=== PATIENT | male | born 1960 | race Caucasian/White ===

== ENCOUNTER 2017-01-08 16:52 | Inpatient (IN) | payer MEDICARE, MEDICAID, OTHER ==
[~2017-01-08] VITALS: Ht 165.1 cm; Wt 71.4 kg
[2017-01-08 17:00] VITALS: BP 178/102; PULSE 98; RESP 16; TEMP 98.7; O2SAT 98
[2017-01-08] MEDS ORDERED: LORazepam 2 MG/ML VIAL IV ONE (17:45)
--- NOTE | 2017-01-08 17:45 | PD ---
HPI . suicide ideation Chief Complaint: Psychiatric Symptoms Time Seen by Provider: 17:35 Travel History International Travel<30 days: No Contact w/Intl Traveler<30days: No Traveled to known affect area: No History of Present Illness HPI 56-year-old male brought in by the police secondary suicide threats and ideation. Patient is very agitated and it is very difficult to obtain a history from him. Patient tells me repeatedly that he wants to kill himself as soon as he goes home he will do exactly that. He denies having an actual plan and tells me that I will only find out once he kills himself and I find out about it later on. At this present time he denies any pain or complaints. He tells me to obtain all of his information from his , who is not present. 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) Social History Alcohol Use: Yes Tobacco Use: Yes Substance Use: Yes (ETOH socially; Nicotine 1-1.5PPD; Has a pain pump implanted.) Allergies-Medications (Allergen,Severity, Reaction): Coded Allergies: No Known Allergies (Verified , 01/08/17) Reported Meds & Prescriptions Reported Meds & Active Scripts Active Active Prescriptions or Reported Medications Unobtainable Review of Systems ROS Limitations: Uncooperative, Combative, Poor Historian General / Constitutional: No: Fever Eyes: No: Visual changes HENT: No: Headaches Cardiovascular: No: Chest Pain or Discomfort Respiratory: No: Shortness of Breath Gastrointestinal: No: Abdominal Pain Genitourinary: No: Dysuria Musculoskeletal: No: Pain Skin: No Rash Neurologic: No: Weakness Psychiatric: Positive: Suicidal Ideations, Mood Disorder Endocrine: No: Polydipsia Hematologic/Lymphatic: No: Easy Bruising Physical Exam Narrative Examination is limited due to patient's disruptive and combat his behavior as well as restraints GENERAL: AAO x 3, Well-nourished, well-developed patient. SKIN: Warm and dry. No visible rashes or bruising. small abrasion to right elbow HEAD: Normocephalic and atraumatic. EYES: No scleral icterus. No injection or drainage. ENT: No nasal drainage noted. Airway patent. NECK: Supple, trachea midline. No JVD. CARDIOVASCULAR: Regular rate and rhythm without murmurs, gallops, or rubs. RESPIRATORY: Breath sounds equal bilaterally. No accessory muscle use. No rhonchi or rales. GASTROINTESTINAL: Abdomen soft, non-tender, nondistended. EXTREMITIES: No cyanosis. b/l pitting edema R>L 3+, pain to palpation of right leg, pedal edema + 2 b/l feet, BACK: No obvious deformity. back brace in place NEURO: grossly intact PSYCH: AAO x 3, very agitated, combative,yelling and cursing Data Data Last Documented VS Vital Signs Date Time Temp Pulse Resp B/P Pulse Ox O2 Delivery O2 Flow Rate FiO2 01/08/17 20:15 70 16 139/71 99 01/08/17 17:00 98.7 Orders Complete Blood Count With Diff (01/08/17 17:45) Comprehensive Metabolic Panel (01/08/17 17:45) Iv Access Insert/Monitor (01/08/17 17:45) Psych Screen (01/08/17 17:45) Lorazepam Inj (Ativan Inj) (01/08/17 17:45) Restraints Non-Violent JENN.Q3H (01/08/17 17:45) Drug Screen, Random Urine (01/08/17 17:45) Alcohol (Ethanol) (01/08/17 17:45) Salicylates (Aspirin) (01/08/17 17:45) Tylenol (Acetaminophen) (01/08/17 17:45) Chest, Single Ap (01/08/17 ) Us Leg Venous Doppler Bilat (01/08/17 17:45) Haloperidol Inj (Haldol Inj) (01/08/17 19:15) Midazolam Inj (Versed Inj) (01/08/17 19:15) ^ Straight Catheter (01/08/17 20:17) Ceftriaxone Inj (Rocephin Inj) (01/08/17 22:00) Azithromycin Inj (Zithromax Inj) (01/08/17 22:00) Urinalysis - C+S If Indicated (01/08/17 21:57) Labs Laboratory Tests Test 01/08/17 01/08/17 19:42 20:30 White Blood Count 13.3 TH/MM3 Red Blood Count 3.94 MIL/MM3 Hemoglobin 11.7 GM/DL Hematocrit 34.9 % Mean Corpuscular Volume 88.7 FL Mean Corpuscular Hemoglobin 29.6 PG Mean Corpuscular Hemoglobin 33.4 % Concent Red Cell Distribution Width 13.5 % Platelet Count 132 TH/MM3 Mean Platelet Volume 10.7 FL Neutrophils (%) (Auto) 76.4 % Lymphocytes (%) (Auto) 13.2 % Monocytes (%) (Auto) 9.8 % Eosinophils (%) (Auto) 0.1 % Basophils (%) (Auto) 0.5 % Neutrophils # (Auto) 10.2 TH/MM3 Lymphocytes # (Auto) 1.8 TH/MM3 Monocytes # (Auto) 1.3 TH/MM3 Eosinophils # (Auto) 0.0 TH/MM3 Basophils # (Auto) 0.1 TH/MM3 CBC Comment DIFF FINAL Differential Comment Sodium Level 135 MEQ/L Potassium Level 4.3 MEQ/L Chloride Level 103 MEQ/L Carbon Dioxide Level 24.3 MEQ/L Anion Gap 8 MEQ/L Blood Urea Nitrogen 26 MG/DL Creatinine 2.02 MG/DL Estimat Glomerular Filtration 34 ML/MIN Rate Random Glucose 104 MG/DL Calcium Level 8.8 MG/DL Total Bilirubin 0.4 MG/DL Aspartate Amino Transf 26 U/L (AST/SGOT) Alanine Aminotransferase 31 U/L (ALT/SGPT) Alkaline Phosphatase 68 U/L Total Protein 6.6 GM/DL Albumin 3.4 GM/DL Salicylates Level 7.0 MG/DL Acetaminophen Level LESS THAN 2.0 MCG/ML Ethyl Alcohol Level LESS THAN 3 MG/DL Urine Opiates Screen POS Urine Barbiturates Screen NEG Urine Amphetamines Screen NEG Urine Benzodiazepines Screen NEG Urine Cocaine Screen NEG Urine Cannabinoids Screen NEG MDM Medical Decision Making Medical Screen Exam Complete: Yes Emergency Medical Condition: Yes Medical Record Reviewed: Yes Differential Diagnosis suicide ideation, drug induced mood disorder, CHF,DVT, lymphedema, Narrative Course 56 yr old male here with suicide ideation. Patient is very disruptive and combative. I have completed an exam. I have provided him with some ativan. He will need labs and cxr and venous doppler. He is an unreliable historian and cannot provide any information in his current state. He is awaiting bed placement and that provider will determine his disposition. 1929: I have resumed care of this patient. I am still waiting on previous workup that was ordered. Patient is now sedated after being very combative and disruptive. He was given Haldol. 2146: labs reviewed: Patient has elevated creatinine of 2.02, baseline seems to be 1.7-1.8, CKD. Ultrasound was negative for DVT. Chest x-ray with possible consolidation versus atelectasis. He does have edema bilaterally in his lower extremities R>L. This is possibly related to his kidneys. He also has elevated white count and elevated neutrophil % without clear source of infection. This may be related to a UTI vs. respiratory vs. other source of infection. UA has been ordered, but not yet resulted. He is afebrile. However, Xray reads as possible atelectasis vs. consolidation. As I do not have a clear source of infection, I will go ahead and give a dose of antibiotics here in the ED as this could be related to the findings on CXR. I have provided him with azithromycin and rocephin here in ED. Drug screen unremarkable: his behavior may be related to something such as K2 which is not detectable with urine tox screen. It is also possible he is having a true psychotic episode. Last Impressions Chest X-Ray 01/08/17 0000 Signed Impressions: Service Date/Time: Sunday, January 08, 2017 20:19 - CONCLUSION: Underinflated examination with mild opacity both lung bases. The appearance favors atelectasis over consolidation. However, mild degree of air space consolidation cannot totally be excluded. Zhou Solis MD Laboratory Tests Test 01/08/17 01/08/17 19:42 20:30 White Blood Count 13.3 TH/MM3 Red Blood Count 3.94 MIL/MM3 Hemoglobin 11.7 GM/DL Hematocrit 34.9 % Mean Corpuscular Volume 88.7 FL Mean Corpuscular Hemoglobin 29.6 PG Mean Corpuscular Hemoglobin 33.4 % Concent Red Cell Distribution Width 13.5 % Platelet Count 132 TH/MM3 Mean Platelet Volume 10.7 FL Neutrophils (%) (Auto) 76.4 % Lymphocytes (%) (Auto) 13.2 % Monocytes (%) (Auto) 9.8 % Eosinophils (%) (Auto) 0.1 % Basophils (%) (Auto) 0.5 % Neutrophils # (Auto) 10.2 TH/MM3 Lymphocytes # (Auto) 1.8 TH/MM3 Monocytes # (Auto) 1.3 TH/MM3 Eosinophils # (Auto) 0.0 TH/MM3 Basophils # (Auto) 0.1 TH/MM3 CBC Comment DIFF FINAL Differential Comment Sodium Level 135 MEQ/L Potassium Level 4.3 MEQ/L Chloride Level 103 MEQ/L Carbon Dioxide Level 24.3 MEQ/L Anion Gap 8 MEQ/L Blood Urea Nitrogen 26 MG/DL Creatinine 2.02 MG/DL Estimat Glomerular Filtration 34 ML/MIN Rate Random Glucose 104 MG/DL Calcium Level 8.8 MG/DL Total Bilirubin 0.4 MG/DL Aspartate Amino Transf 26 U/L (AST/SGOT) Alanine Aminotransferase 31 U/L (ALT/SGPT) Alkaline Phosphatase 68 U/L Total Protein 6.6 GM/DL Albumin 3.4 GM/DL Salicylates Level 7.0 MG/DL Acetaminophen Level LESS THAN 2.0 MCG/ML Ethyl Alcohol Level LESS THAN 3 MG/DL Urine Opiates Screen POS Urine Barbiturates Screen NEG Urine Amphetamines Screen NEG Urine Benzodiazepines Screen NEG Urine Cocaine Screen NEG Urine Cannabinoids Screen NEG Case has been discussed with Dr. Street who is in agreement with the above treatment plan. 2204: We discussed the case with Dr. Ortega who recommends psych screen and consult to medicine to f/u the elevated white count and for treatment. Patient has been medically cleared for psych screen. They will determine his disposition. Diagnosis Primary Impression: ANGELIQUE (acute kidney injury) Additional Impressions: Leukocytosis Qualified Code: D72.828 - Other elevated white blood cell (WBC) count Acute psychosis Admitting Information Admitting Physician Requests: Admit Scripts Unable to Obtain Active Prescriptions or Reported Meds Condition: Stable Kaycee Dahl Jan 08, 2017 17:44
[2017-01-08] MEDS ORDERED: HALOPERIDOL LACTATE 5 MG/ML AMP IM ONE (19:15)
[2017-01-08] MEDS ORDERED: MIDAZOLAM HCL 2 MG/2 ML VIAL IM ONE (19:15)
[2017-01-08 20:03] LABS: AUTOMATED NEUTROPHIL # 10.2 TH/MM3 (1.8-7.7); BASOPHIL # 0.1 TH/MM3 (0-0.2); BASOPHIL % 0.5 % (0.0-2.0); EOSINOPHIL % 0.1 % (0.0-4.0); HEMATOCRIT 34.9 % (39.0-51.0); HEMO FLAGS DIFF FINAL; LYMPH % 13.2 % (9.0-44.0); LYMPHOCYTE # 1.8 TH/MM3 (1.0-4.8); MEAN CELL VOLUME 88.7 FL (80.0-100.0); MEAN CORPUSCULAR HEMOGLOBIN 29.6 PG (27.0-34.0); MEAN CORPUSCULAR HGB CONC 33.4 % (32.0-36.0); MONO % 9.8 % (0.0-8.0); NEUT % 76.4 % (16.0-70.0); PLATELET COUNT 132 TH/MM3 (150-450); RED BLOOD COUNT 3.94 MIL/MM3 (4.50-5.90); RED CELL DISTRIBUTION WIDTH 13.5 % (11.6-17.2); WHITE BLOOD COUNT 13.3 TH/MM3 (4.0-11.0)
[2017-01-08 20:15] VITALS: BP 139/71; PULSE 70; RESP 16; O2SAT 99
[2017-01-08 20:18] LABS: ANION GAP 8 MEQ/L (5-15); AST (GOT) 26 U/L (15-37); BICARBONATE 24.3 MEQ/L (21.0-32.0); BLOOD UREA NITROGEN 26 MG/DL (7-18); CHLORIDE 103 MEQ/L (98-107); GLOMERULAR FILTRATION RATE 34 ML/MIN (>89); POTASSIUM 4.3 MEQ/L (3.5-5.1); SODIUM (NA) 135 MEQ/L (136-145)
[2017-01-08 20:20] LABS: ALT (GPT) 31 U/L (12-78)
[2017-01-08 20:21] LABS: ACETAMINOPHEN LESS THAN 2.0 MCG/ML (10.0-30.0); ALKALINE PHOSPHATASE 68 U/L (45-117); TOTAL BILIRUBIN ADULT 0.4 MG/DL (0.2-1.0)
--- NOTE | 2017-01-08 20:33 | RADRPT ---
EXAM DATE/TIME: 01/08/2017 20:19 [facility] COMPARISON: No previous studies available for comparison. INDICATIONS : Cough. MEDICAL HISTORY : None. SURGICAL HISTORY : None. ENCOUNTER: Initial ACUITY: 1 day PAIN SCORE: Non-responsive. LOCATION: Bilateral chest FINDINGS: Portable AP view of the chest demonstrates a normal-sized cardiac silhouette. The lungs are underinfl ated and there is mild airspace opacity both lung bases. No effusion or pneumothorax is visualized. B ones and soft tissues demonstrate no acute finding. Cervical spine hardware is present. CONCLUSION: Underinflated examination with mild opacity both lung bases. The appearance favors atelectasis over c onsolidation. However, mild degree of air space consolidation cannot totally be excluded. Zhou Solis MD on January 08, 2017 at 20:30 Board Certified Radiologist. This report was verified electronically.
[2017-01-08 21:28] LABS: AMPHETAMINE, URINE NEG (NEG); BARBITURATES, URINE NEG (NEG); COCAINE, URINE NEG (NEG)
--- NOTE | 2017-01-08 21:45 | RADRPT ---
EXAM DATE/TIME: 01/08/2017 21:07 [facility] COMPARISON: No previous studies available for comparison. INDICATIONS : Bilateral leg swelling. MEDICAL HISTORY : Hypertension. Suicided attempt. SURGICAL HISTORY : Cervicle spine surgery. Abdominal pain pump. Fistula repair. ENCOUNTER: Initial ACUITY: 1 day PAIN SCORE: Non-responsive LOCATION: Bilateral legs. TECHNIQUE: Venous ultrasound of the left and right leg was performed from the inguinal ligament to the proximal calf. Real-time, color Doppler and spectral tracing, compression and augmentation techniques were us ed. FINDINGS: RIGHT LEG: There is normal compressibility of the deep venous system from the inguinal region to the proximal ca lf. No echogenic clot is seen in the lumen of the common femoral, femoral, popliteal, and posterior tibial veins. There is a normal response of the venous system to proximal and distal augmentation an d respiration. LEFT LEG: There is normal compressibility of the deep venous system from the inguinal region to the proximal ca lf. No echogenic clot is seen in the lumen of the common femoral, femoral, popliteal, and posterior tibial veins. There is a normal response of the venous system to proximal and distal augmentation an d respiration. CONCLUSION: No DVT is identified within either lower extremity. Zhou Solis MD on January 08, 2017 at 21:38 Board Certified Radiologist. This report was verified electronically.
[2017-01-08] MEDS ORDERED: AZITHROMYCIN INJ 500 MG in SODIUM CHLOR 0.9% 250 ML INJ 250 ML IV ONE (22:00)
[2017-01-08] MEDS ORDERED: cefTRIAXone INJ 1,000 MG in SODIUM CHLORIDE 0.9% INJ 100 ML IV ONE (22:00)
[2017-01-08 22:16] LABS: BLOOD, URINE NEG (NEG); COMMENT (UR) CULT NOT INDICATED; CULTURE IF INDICATED CULT NOT INDICATED; GLUCOSE,URINE NEG (NEG); HYALINE CAST, URINE 3 /lpf (RARE); KETONE, URINE NEG (NEG); NITRITE,URINE NEG (NEG); URINE COLOR YELLOW (YELLW/STRAW)
[2017-01-08] MEDS ORDERED: [UNRECOGNIZED DRUG - REMARK] (22:33)
[2017-01-08 23:00] VITALS: BP 124/62; PULSE 66; RESP 16; O2SAT 99
[2017-01-09 01:00] VITALS: BP 156/72; PULSE 54; RESP 16; O2SAT 99
[2017-01-09] MEDS ORDERED: ACETAMINOPHEN 325 MG TAB PO ONE (03:00)
[2017-01-09 06:00] VITALS: BP 125/60; PULSE 68; RESP 20; TEMP 97.1; O2SAT 98
[2017-01-09] MEDS ORDERED: MORP1TAB24 PO (06:04)
[2017-01-09] MEDS ORDERED: LORA-373 PO (06:04)
[2017-01-09] MEDS ORDERED: BACL10TA PO ×2 (06:45→13:23)
[2017-01-09] MEDS ORDERED: BLOOD PRESSURE (06:45)
--- NOTE | 2017-01-09 13:13 | PD ---
History of Present Illness Chief Complaint: Psychiatric Symptoms Time Seen by Provider: 10:45 Travel History International Travel<30 Days: No Contact w/Intl Traveler<30days: No Known affected area: No Legal Status Legal Status: Fu Act Fu Act Signed By: Margo Manrique History of Present Illness: History of Present Illness HPI 56-year-old male with history of anxiety and depression as well as chronic pain who is brought in by the police under a BA secondary to suicide threats and ideation. . The BA reads " Tanmay was contacted at home when he became combative and making threats to hurt himself and others. Patient upon arrival to ED was agitated and uncooperative. ED note reads " Patient tells me repeatedly that he wants to kill himself as soon as he goes home he will do exactly that. He denies having an actual plan and tells me that I will only find out once he kills himself and I find out about it later on." EMR is reviewed. He was admitted to [facility] in 2008 for suicidal ideation and threats . Patient is seen in J pod. he is awake, alert and oriented. Speech is clear and logical. He appears depressed. He denies social ideation to me at this time . He does not acknowledge events leading up to him being placed under a BA. He states " I don't remember why I came here or what I said". Staff have contacted the patient's who reports that she is concerned with his recent behaviors. She expresses her concern his safety if he were to be discharged . It is reported that yesterday while she was at work he is neighbor went to check on him and found him unresponsive. 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 HX: DEPRESSION, ANXIETY History of Inpatient Treatment: No Guns or firearms in home: No Social History x 36 years. Lives with . Patient sustained a back injury in 200 with persistent pain. Hx Alcohol Use: Yes Hx Tobacco Use: Yes Hx Substance Use: No Substance Use Type: Alcohol, Nicotine/Cigarettes Hx of Substance Use Treatment: No Family Psychiatric History Unknown. Allergies-Medications (Allergen,Severity, Reaction): Coded Allergies: No Known Allergies (Verified , 01/08/17) Reported Meds & Prescriptions Reported Meds & Active Scripts Active Reported [Blood Pressure] Baclofen 10 Mg Tab 10 Mg PO Q8HR PRN Lorazepam 0.5 Mg Tab 0.5 Mg PO Q8H PRN Morphine ER (Morphine Sulfate) 15 Mg Tab 15 Mg PO Q8H PRN Review of Systems Musculoskeletal: COMPLAINS OF: Joint pain, Back pain, Neck pain Exam Alert: Yes [place]: Person (ox4) Mood: Depressed Affect: Restricted Speech: Clear, Logical Eye Contact: Normal Memory Intact: Comment (reports does not remember what led to BA ) Hallucinations: Other (negative) Suicidal: Ideation (deneis ant present) Homicidal: Ideation (denies at present) Insight/Judgement poor. poor. MDM Medical Decision Making Medical Record Reviewed: Yes Assessment/Plan 56 year old male with hx of depression and anxiety as well as hx of chronic pain who was placed under a BA after he was found unresponsive in his home. He then became agitated, combative and made threats to hurt himself and others. patient presented in agitated state in ED. At this time it is recommended that he be admitted to [facility] for further observation, to maintain safety as well as to adjust current medications. Will obtain necessary consults as well to manage medical issues. Orders Complete Blood Count With Diff (01/08/17 17:45) Comprehensive Metabolic Panel (01/08/17 17:45) Iv Access Insert/Monitor (01/08/17 17:45) Psych Screen (01/08/17 17:45) Lorazepam Inj (Ativan Inj) (01/08/17 17:45) Restraints Non-Violent JENN.Q3H (01/08/17 17:45) Drug Screen, Random Urine (01/08/17 17:45) Alcohol (Ethanol) (01/08/17 17:45) Salicylates (Aspirin) (01/08/17 17:45) Tylenol (Acetaminophen) (01/08/17 17:45) Chest, Single Ap (01/08/17 ) Us Leg Venous Doppler Bilat (01/08/17 17:45) Haloperidol Inj (Haldol Inj) (01/08/17 19:15) Midazolam Inj (Versed Inj) (01/08/17 19:15) ^ Straight Catheter (01/08/17 20:17) Ceftriaxone Inj (Rocephin Inj) (01/08/17 22:00) Azithromycin Inj (Zithromax Inj) (01/08/17 22:00) Urinalysis - C+S If Indicated (01/08/17 21:57) Acetaminophen (Tylenol) (01/09/17 03:00) Diet Regular Basic (01/09/17 Breakfast) Diet Regular Basic (01/09/17 Lunch) Results Vital Signs Date Time Temp Pulse Resp B/P Pulse Ox O2 Delivery O2 Flow Rate FiO2 01/09/17 06:00 97.1 68 20 125/60 98 Room Air 01/09/17 01:00 54 16 156/72 99 Room Air 01/08/17 23:00 66 16 124/62 99 Room Air 01/08/17 20:15 70 16 139/71 99 01/08/17 17:00 98.7 98 16 178/102 98 Laboratory Tests Test 01/08/17 01/08/17 19:42 20:30 White Blood Count 13.3 Red Blood Count 3.94 Hemoglobin 11.7 Hematocrit 34.9 Mean Corpuscular Volume 88.7 Mean Corpuscular Hemoglobin 29.6 Mean Corpuscular Hemoglobin 33.4 Concent Red Cell Distribution Width 13.5 Platelet Count 132 Mean Platelet Volume 10.7 Neutrophils (%) (Auto) 76.4 Lymphocytes (%) (Auto) 13.2 Monocytes (%) (Auto) 9.8 Eosinophils (%) (Auto) 0.1 Basophils (%) (Auto) 0.5 Neutrophils # (Auto) 10.2 Lymphocytes # (Auto) 1.8 Monocytes # (Auto) 1.3 Eosinophils # (Auto) 0.0 Basophils # (Auto) 0.1 CBC Comment DIFF FINAL Differential Comment Sodium Level 135 Potassium Level 4.3 Chloride Level 103 Carbon Dioxide Level 24.3 Anion Gap 8 Blood Urea Nitrogen 26 Creatinine 2.02 Estimat Glomerular Filtration 34 Rate Random Glucose 104 Calcium Level 8.8 Total Bilirubin 0.4 Aspartate Amino Transf 26 (AST/SGOT) Alanine Aminotransferase 31 (ALT/SGPT) Alkaline Phosphatase 68 Total Protein 6.6 Albumin 3.4 Salicylates Level 7.0 Acetaminophen Level LESS THAN 2.0 Ethyl Alcohol Level LESS THAN 3 Urine Color YELLOW Urine Turbidity CLEAR Urine pH 6.0 Urine Specific [place] 1.008 Urine Protein NEG Urine Glucose (UA) NEG Urine Ketones NEG Urine Occult Blood NEG Urine Nitrite NEG Urine Bilirubin NEG Urine Urobilinogen LESS THAN 2.0 Urine Leukocyte Esterase NEG Urine RBC 1 Urine Hyaline Casts 3 Microscopic Urinalysis Comment CULT NOT INDICATED Urine Opiates Screen POS Urine Barbiturates Screen NEG Urine Amphetamines Screen NEG Urine Benzodiazepines Screen NEG Urine Cocaine Screen NEG Urine Cannabinoids Screen NEG Diagnosis Primary Impression: Adjustment disorder Additional Impressions: ANGELIQUE (acute kidney injury) Acute psychosis Leukocytosis Admitting Information Admitting Physician Requests: Admit Condition: Stable Problem Qualifiers Primary Impression: Adjustment disorder Qualified Code: F43.23 - Adjustment disorder with mixed anxiety and depressed mood Additional Impressions: Leukocytosis Qualified Code: D72.828 - Other elevated white blood cell (WBC) count Enid Vora Jan 09, 2017 13:13
[2017-01-09] MEDS ORDERED: NIFE60TA58 PO (13:23)
[2017-01-09] MEDS ORDERED: LORA-475 PO (13:23)
[2017-01-09] MEDS ORDERED: GABA100C4 PO (13:23)
[2017-01-09] MEDS ORDERED: AMLO5TAB2 PO (13:23)
[2017-01-09] MEDS ORDERED: OMEP20TA PO (13:23)
[2017-01-09] MEDS ORDERED: CYMB60CA PO (13:23)
[2017-01-09] MEDS ORDERED: GABA300C5 PO (13:23)
[2017-01-09] MEDS ORDERED: MORP1TAB26 PO (13:23)
[2017-01-09] MEDS ORDERED: PIND5 PO (13:23)
[2017-01-09] MEDS ORDERED: MAGNESIUM HYDROXIDE SUSP 30 ML CUP PO PRN (13:30)
[2017-01-09] MEDS ORDERED: ALUMINUM/MAGNESIUM/SIMETH 30 ML CUP PO PRN (13:30)
[2017-01-09] MEDS ORDERED: MIDO2.5T PO (13:32)
[2017-01-09 13:41] VITALS: BP 129/67; PULSE 65; RESP 16; O2SAT 100
[2017-01-09 15:08] VITALS: BP 159/70; PULSE 64; RESP 18; TEMP 98.3
[2017-01-09] MEDS: ACETAMINOPHEN 325 MG TAB PO PRN (15:09)
[2017-01-09] MEDS: MORPHINE SULFATE 60 MG CONTROLLED RELEASE TAB PO SCH (16:15)
[2017-01-09 17:34] VITALS: BP 159/70; PULSE 64; RESP 18; TEMP 98.3; O2SAT 95
[2017-01-09] MEDS: PINDOLOL 5 MG TAB PO SCH (20:37)
[2017-01-09] MEDS: DULoxetine HCl DR 60 MG CAP PO SCH (20:37)
[2017-01-09] MEDS: GABAPENTIN 100 MG CAP PO SCH (20:37)
[2017-01-09] MEDS: GABAPENTIN 300 MG CAP PO SCH (20:37)
[2017-01-10] MEDS: MORPHINE SULFATE 60 MG CONTROLLED RELEASE TAB PO SCH ×3 (00:33→16:20)
[2017-01-10] MEDS: LORazepam 2 MG/ML VIAL IV PRN (00:52)
[2017-01-10 05:57] VITALS: BP 171/77; PULSE 81; RESP 17; TEMP 98.1; O2SAT 95
[2017-01-10] MEDS: PINDOLOL 5 MG TAB PO SCH ×2 (08:59→21:40)
[2017-01-10] MEDS: DULoxetine HCl DR 60 MG CAP PO SCH ×2 (08:59→21:40)
[2017-01-10] MEDS: GABAPENTIN 300 MG CAP PO SCH ×2 (08:59→21:40)
[2017-01-10] MEDS: GABAPENTIN 100 MG CAP PO SCH ×2 (08:59→21:40)
[2017-01-10] MEDS ORDERED: PANTOPRAZOLE SOD 20 MG DELAYED RELEASE TAB PO SCH (09:00)
[2017-01-10] MEDS ORDERED: amLODIPine BESYLATE 5 MG TAB PO SCH (09:00)
[2017-01-10 09:19] LABS: ANION GAP 12 MEQ/L (5-15); BICARBONATE 26.2 MEQ/L (21.0-32.0); BLOOD UREA NITROGEN 19 MG/DL (7-18); CHLORIDE 103 MEQ/L (98-107); POTASSIUM 3.9 MEQ/L (3.5-5.1); SODIUM (NA) 141 MEQ/L (136-145)
[2017-01-10 09:21] LABS: GLOMERULAR FILTRATION RATE 46 ML/MIN (>89)
[2017-01-10 09:25] LABS: HDL CHOLESTEROL 60.9 MG/DL (40.0-60.0); LDL CHOLESTEROL 141 MG/DL (0-99)
--- NOTE | 2017-01-10 10:46 | HHI.HP ---
Provisional Diagnosis Admission Date Jan 09, 2017 at 13:26 [place] I. Her with mixed anxiety and depressed mood F 43.23 Certification of Person's Competence To Provide Express and Informed Consent I have personally examined Tanmay Red , a person being served at [facility] on, Jan 10, 2017 10:09. Express and informed consent means consent voluntarily given in writing, by a competent person, after sufficient explanation and disclosure of the subject matter involved to enable the person to make a knowing and willful decision without any element of force, fraud, deceit, duress, or other form of constraint or coercion. This person is 18 years of age or older, is not now known to be incompetent to consent to treatment with a guardian advocate, and does not have a health care surrogate or proxy currently making medical treatment decisions. I have found this person to be one of the following: [] Competent to provide express and informed consent, as defined above, for voluntary admission to this facility and is competent to provide express and informed consent for treatment. He/she has the consistent capacity to make well reasoned, willful, and knowing decisions concerning his or her medical or mental health treatment. The person fully and consistently understands the purpose of the admission for examination/placement and is fully capable of personally exercising all rights assured under [place] Incompetent to provide express and informed consent to voluntary admission, and this is incompetent to provide express and informed consent to treatment. The person must be transferred to involuntary status and a petition for a guardian advocate filed with the Circuit Court. [xx] Refusing to provide express and informed consent to voluntary admission but is competent to provide express and informed consent for treatment. The person must be discharged or transferred to involuntary status. Form shall be completed within 24 hours of a person's arrival at the receiving facility and filed in the clinical record of each person: 1. Admitted on a voluntary basis 2. Permitted to provide express and informed consent to his/her own treatment 3. Allowed to transfer from involuntary to voluntary status 4. Prior to permitting a person to consent to his or her own treatment after having been previously found incompetent to consent to treatment. History of Present Illness Capacity: Lacks Capacity (patient lacks capacity to sign for admission, this have capacity to sign for medication) HPI Patient is a 56-year-old white male comes here under Fu act by the [facility] office dated 01/08/17 at 4:15 PM the document reviewed and agreed with initially stating that he was contacted at home when he became combative making threats to hurt himself and others. Patient seen screened in the ED urine toxicology positive for opiates, alcohol less than 3. EMR reviewed patient has had 1 prior visit here 2008 for depression with overdose seen by Dr. Prabhakar. Patient seen in his room with nurse [place], patient laying in bed showing a behavior indicating that he is in pain he is at times moaning and groaning and twisting around holding his abdomen. There are delays in his response to questions that may be related to his pain level. Patient somewhat reluctantly and irritably does answer questions. He states he does not remember what happened yesterday. However today he denies suicidality homicidality voices or visions. He states he has severe chronic pain from back injury 20+ years ago in [place]. He does have a baclofen pump. And he is on supplemental oral morphine. He states that this is issue. He does state he sees a psychiatrist Dr. Florez through [place] act and is prescribed Cymbalta 60 mg twice a day. He also states she has a pain doctor in the [place] area He states he lives with his . There are no children in the house. He states his relationship with his is good. He denies alcohol or other drugs with this. He does state he has occasional adult beverage. As the session continued patient became more more angry and irritable stating all he wish to do was to go home. I have attempted twice to call patient's Rhoda Red at [phone] have left messages on the answering machine for return my call. I feel it is important to get some confirmatory information concerning this man safety. Thus at the present time we will admit patient we will continue the Fu act I'll do first opinion requests a second opinion. Will continue medications per the EMR be due the hospitalist consulting with us. 10:45 AM talked with patient's on the phone. She confirms the chronicity and severity of the patient's pain. She also states that over the past few days has become more irritable angry making vague suicidal statements saying that she should just leave him. He has had insomnia decreased appetite along with this. She states they have been at attempting to readjust the medications and is pump is now on morphine and baclofen in the pump. She is somewhat fearful for his safety. Thus at the present time we'll continue the Fu act I 'll do first opinion request a second opinion. Patient's will meet with us at about noon tomorrow to discuss further care. I will offer the patient Elavil 25 mg at at bedtime tonight also Review of Systems Constitutional: DENIES: Diaphoretic episodes, Fatigue, Fever, Weight gain, Weight loss, Chills, Dizziness, Change in appetite, Night Sweats Endocrine: DENIES: Heat/cold intolerance, Polydipsia, Polyuria, Polyphagia Eyes: DENIES: Blurred vision, Diplopia, Eye inflammation, Eye pain, Vision loss , Photosensitivity, Double Vision Ears, nose, mouth, throat: DENIES: Tinnitus, Hearing loss, Vertigo, Nasal discharge, Oral lesions, Throat pain, Hoarseness, Ear Pain, Running Nose, Epistaxis, Sinus Pain, Toothache, Odynophagia Respiratory: DENIES: Apneas, Cough, Snoring, Wheezing, Hemoptysis, Sputum production, Shortness of breath Cardiovascular: DENIES: Chest pain, Palpitations, Syncope, Dyspnea on Exertion , PND, Lower Extremity Edema, Orthopnea, Claudication Gastrointestinal: DENIES: Abdominal pain, Black stools, Bloody stools, Constipation, Diarrhea, Nausea, Vomiting, Difficulty Swallowing, Anorexia Genitourinary: DENIES: Sexual dysfunction, Urinary frequency, Urinary incontinence, Urgency, Hematuria, Dysuria, Nocturia, Penile Discharge, Testicular Pain, Testicular Swelling Musculoskeletal: COMPLAINS OF: Back pain (severe has baclofen pump and supplemental morphine orally), Neck pain Integumentary: DENIES: Abnormal pigmentation, Nail changes, Pruritus, Rash Hematologic/lymphatic: DENIES: Bruising, Lymphadenopathy Immunologic/allergic: DENIES: Eczema, Urticaria Neurologic: DENIES: Abnormal gait, Headache, Localized weakness, Paresthesias, Seizures, Speech Problems, Tremor, Poor Balance Psychiatric: COMPLAINS OF: Anxiety, Depression, Agitation Past Psych History Psychological trauma history Patient severe back injury traumatic 20+ years ago with chronic severe back pain Violence risk - others (6 mos) Low Violence risk - self (6 mos) Patient make vague suicidal statements though now denying it Substance Abuse History Drugs/Alcohol past 12 months Denies Past Family Social History Coded Allergies: No Known Allergies (Verified , 01/08/17) Past Medical History Severe chronic back pain Reported Medications Midodrine 2.5 Mg Tab2.5 Mg PO TID #90 TAB Ref 0 01/09/[address] (Jocelynn BERNARD)60 Mg [id number] Mg PO DAILY #30 CAP Ref 0 01/09/17 Gabapentin 300 Mg [id number] Mg PO BID #60 CAP Ref 0 01/09/17 Gabapentin 100 Mg [id number] Mg PO BID #60 CAP Ref 0 01/09/17 Nifedipine ER 24 HR 60 Mg Tab60 Mg PO DAILY #30 TAB Ref 0 01/09/17 Baclofen 10 Mg Tab10 Mg PO QID PRN (MUSCLE SPASM) Ref 0 01/09/17 Morphine ER 60 Mg Tab60 Mg PO Q8H Ref 0 01/09/17 Omeprazole 20 Mg Tab20 Mg PO DAILY #30 TAB Ref 0 01/09/17 Amlodipine 5 Mg Tab5 Mg PO DAILY #30 TAB Ref 0 01/09/17 Pindolol 5 Mg Tab5 Mg PO Q12HR #60 TAB Ref 0 01/09/17 Lorazepam (Ativan)2 Mg Tab2 Mg PO Q8H PRN (ANXIETY AND/OR AGITATION) Ref 0 01/09/17 Discontinued Reported Medications [Blood Pressure] No Conflict Check 01/09/17 Baclofen 10 Mg Tab10 Mg PO Q8HR PRN (MUSCLE SPASM) Ref 0 01/09/17 Lorazepam 0.5 Mg Tab0.5 Mg PO Q8H PRN (ANXIETY) Ref 0 01/09/17 Morphine ER 15 Mg Tab15 Mg PO Q8H PRN (Pain Management) Ref 0 01/09/17 [pt refuses to answer] No Conflict Check 01/08/17 Current Medications Medications (Trade) Dose Ordered Sig/Carmen Route Start Time Stop Time Status Last Admin (Tylenol) 650 mg Q4H PRN PO 01/09/17 13:30 01/09/17 15:09 (Milk Of Magnesia Liq) 30 ml DAILY PRN PO 01/09/17 13:30 (Mag-Al Plus Susp Liq) 30 ml Q6H PRN PO 01/09/17 13:30 (Norvasc) 5 mg DAILY PO 01/10/17 09:00 01/10/17 08:59 (Cymbalta Dr) 60 mg BID PO 01/09/17 21:00 01/10/17 08:59 (Neurontin) 100 mg BID PO 01/09/17 21:00 01/10/17 08:59 (Neurontin) 300 mg BID PO 01/09/17 21:00 01/10/17 08:59 (Visken) 5 mg Q12HR PO 01/09/17 21:00 01/10/17 08:59 (Protonix) 20 mg DAILY PO 01/10/17 09:00 01/10/17 09:00 (Oramorph Sr) 60 mg Q8H PO 01/09/17 16:00 01/10/17 08:59 Family History Patient unwilling to discuss family history Social History Patient lives with pet dog Patient's Strengths (min. 2) Patient verbal they will accept self care Physical Exam Patient seen screened in ED exam reviewed and agreed with patient angry irritable quite demonstrative with his pain twisting in bed moaning and groaning Vital Signs Vital Signs Date Time Temp Pulse Resp B/P Pulse Ox O2 Delivery O2 Flow Rate FiO2 01/10/17 05:57 98.1 81 17 171/77 95 01/09/17 13:41 Room Air Lab Results Urine toxicology positive for opiates Mental Status Examination Alert oriented white male appears stated age laying in the bed and obviously in pain. Patient moving all 4 extremities angry and irritable Appearance In bed in obvious pain Speech: Hesitant, Slow Orientation: x3 Memory: Unremarkable Thought Process: Linear Thought Content: Unremarkable Language fair Fund of Knowledge Fair Hallucination Type: None Attention and Concentration: Other (fair) Suicidal Ideation: No (patient denies at this time) Previous Suicide Attempts: Yes (patient hospitalized here in 2008) Homicidal Ideation: No Previous Homicide Attempts: No Insight: Poor Judgment: Poor Affect: Other (marked increase range and intensity) Mood: Angry, Irritable Motor Activity: Abnormal gait-specify (patient in bed complaining of severe back pain) Assessment & Plan Problem List: (1) Adjustment disorder ICD Code: F43.20 Assessment & Plan Estimated LOS: 1-3 days distant patient meets criteria for further assessment under the Fu act. We will meet with patient's tomorrow at about noon. And offer patient a level 25 mg at bedtime We'll continue medications per the EMR review of hospitalist consulting with us Discharge Planning To be determined Request HC Surrog/Guard Advoc?: No Problem Qualifiers (1) Adjustment disorder: Qualified Code: F43.23 - Adjustment disorder with mixed anxiety and depressed mood Zhou Glover MD Jan 10, 2017 10:46
[2017-01-10] MEDS ORDERED: ACETAMINOPHEN 325 MG TAB PO PRN (11:00)
[2017-01-10] MEDS ORDERED: MAGNESIUM HYDROXIDE SUSP 30 ML CUP PO PRN (11:00)
[2017-01-10] MEDS ORDERED: ALUMINUM/MAGNESIUM/SIMETH 30 ML CUP PO PRN (11:00)
--- NOTE | 2017-01-10 14:37 | PD.CONS ---
HPI Service [facility] ([place], [place])ists Consult Requested By Psychiatry team Reason for Consult Patient with history of chronic pain. On pain pump and multiple pain medication. Primary Care Physician Unknown Diagnoses: History of Present Illness Written by Ish Doyle, acting as scribe for Dr. Gonzalez on 01/10/17 at 14: 14. Patient is a 56-year-old male with primary medical history of hypertension, depression, chronic back pain with pain pump infusion who came into the hospital brought in by the police for suicidal threats ideation. He is now admitted to inpatient psychiatry unit further evaluation. Consulted for medical management. Patient seen and examined today. Tearful saying he is in a lot of pain. Pain is described as constant, located at the back. States that he got severe chronic back pain secondary to back injury 20+ years ago in [place]. States that he has pain pump and has been followed by pain management doctor [facility]. States that pain pump is being changed every 2 months but he is unsure of the, he has an appointment Sunday to see his pain doctor. Patient states that pain pump is a combination of morphine and baclofen. Patient states that they're supposed to change it to Dilaudid and baclofen but he isn't sure if it has been changed or not. Verified other medical conditions. Patient states that he is able to walk and ambulate. Denies SOB/ dyspnea. Denies chest pain, palpitations, headaches, dizziness. Denies fevers, chills, n/v/d. Denies hematuria, dysuria. As per Dr. Glover, who spoke with his states that pain pump is hydromorphone and baclofen. Review of Systems Except as stated in HPI: all other systems reviewed are Neg Past Family Social History Allergies: Coded Allergies: No Known Allergies (Verified , 01/08/17) Past Medical History Chronic back pain Hypertension Depression Past Surgical History Surgery Pain pump placement Reported Medications Reported Meds & Active Scripts Active Reported Midodrine 2.5 Mg Tab 2.5 Mg PO TID Cymbalta (Duloxetine HCl) 60 Mg Capdr 120 Mg PO DAILY Gabapentin 300 Mg Cap 300 Mg PO BID Gabapentin 100 Mg Cap 100 Mg PO BID Nifedipine ER 24 HR (Nifedipine) 60 Mg Tab 60 Mg PO DAILY Baclofen 10 Mg Tab 10 Mg PO QID PRN Morphine ER (Morphine Sulfate) 60 Mg Tab 60 Mg PO Q8H Omeprazole 20 Mg Tab 20 Mg PO DAILY Amlodipine (Amlodipine Besylate) 5 Mg Tab 5 Mg PO DAILY Pindolol 5 Mg Tab 5 Mg PO Q12HR Ativan (Lorazepam) 2 Mg Tab 2 Mg PO Q8H PRN Active Ordered Medications Current Medications Medications (Trade) Dose Ordered Sig/Carmen Route Start Time Stop Time Status Last Admin (Tylenol) 650 mg Q4H PRN PO 01/09/17 13:30 01/09/17 15:09 (Milk Of Magnesia Liq) 30 ml DAILY PRN PO 01/09/17 13:30 (Mag-Al Plus Susp Liq) 30 ml Q6H PRN PO 01/09/17 13:30 (Norvasc) 5 mg DAILY PO 01/10/17 09:00 01/10/17 08:59 (Cymbalta Dr) 60 mg BID PO 01/09/17 21:00 01/10/17 08:59 (Neurontin) 100 mg BID PO 01/09/17 21:00 01/10/17 08:59 (Neurontin) 300 mg BID PO 01/09/17 21:00 01/10/17 08:59 (Visken) 5 mg Q12HR PO 01/09/17 21:00 01/10/17 08:59 (Protonix) 20 mg DAILY PO 01/10/17 09:00 01/10/17 09:00 (Oramorph Sr) 60 mg Q8H PO 01/09/17 16:00 01/10/17 08:59 (Elavil) 25 mg HS PO 01/10/17 21:00 (Habitrol 21 Mg Patch.24 Hr) 1 patch DAILY T-DERMAL 01/11/17 09:00 Miscellaneous Information 1 HS T-DERMAL 01/11/17 21:00 Family History Denies any family medical history Social History Denies alcohol use Tobacco use three quarters of a pack per day, since 12 years old Denies illicit drug use Physical Exam Vital Signs Vital Signs Date Time Temp Pulse Resp B/P Pulse Ox O2 Delivery O2 Flow Rate FiO2 01/10/17 05:57 98.1 81 17 171/77 95 01/09/17 17:34 98.3 64 18 159/70 95 01/09/17 15:08 98.3 64 18 159/70 Physical Exam GENERAL: This is a well-nourished, well-developed patient, no acute distress. SKIN: Mid back portion with scar from prior surgery. Warm and dry. HEAD: Atraumatic. Normocephalic. No temporal or scalp tenderness. EYES: Pupils equal round and reactive. Extraocular motions intact. No scleral icterus. No injection or drainage. ENT: Nose without bleeding. Airway patent. NECK: Trachea midline. No JVD or lymphadenopathy. Supple, nontender, no meningeal signs. CARDIOVASCULAR: Regular rate and rhythm without murmurs, gallops, or rubs. RESPIRATORY: Clear to auscultation. Breath sounds equal bilaterally. No wheezes , rales, or rhonchi. GASTROINTESTINAL: Abdomen soft, non-tender, nondistended. Bowel sounds active 4. Right quadrant with pain pump. Left quadrant with scar from previous pain pump insertion site MUSCULOSKELETAL: Extremities without clubbing, cyanosis, or edema. No joint tenderness, effusion, or edema noted. No calf tenderness. Negative Homans sign bilaterally. NEUROLOGICAL: Awake and alert. Grimacing every time he gets to be moved. Unable perform leg elevations due to being in pain. Speech is guarded, does not want to provide information. Laboratory Laboratory Tests Test 01/10/17 07:52 Sodium Level 141 Potassium Level 3.9 Chloride Level 103 Carbon Dioxide Level 26.2 Anion Gap 12 Blood Urea Nitrogen 19 Creatinine 1.57 Estimat Glomerular Filtration 46 Rate Random Glucose 73 Calcium Level 8.9 Triglycerides Level 123 Cholesterol Level 226 LDL Cholesterol 141 HDL Cholesterol 60.9 Cholesterol/HDL Ratio 3.71 Result Diagram: 01/08/17 1942 01/10/17 0752 Assessment and Plan Problem List: (1) Adjustment disorder ICD Code: F43.20 Status: Acute (2) Chronic back pain ICD Code: M54.9 Status: Acute (3) Chronic pain ICD Code: G89.29 Status: Chronic Assessment and Plan Patient is a 56-year-old male with primary medical history of hypertension, depression, chronic back pain with pain pump infusion who came into the hospital brought in by the police for suicidal threats ideation. He is now admitted to inpatient psychiatry unit further evaluation. Consulted for medical management. Depression, adjustment disorder - Managed by psychiatry team Acute on Chronic back pain - Pain pump with hydromorphone/baclofen - Continue with pain medication morphine 60 mg every 8 hours - Continue with gabapentin - Severe pain, unable to move around the bed, but states he is able to ambulate and he has ambulated the day room. Patient's pain syndrome have some addiction and depression component as his injuries have been about 20+ years ago. He is on high dose of pain medication with history of overdose. - Will not change pain regimen - Continue with changes in psychiatric medications - PT to treat and evaluate Leukocytosis - Negative UA - Chest x-ray showed underinflated examination with mild opacity in both lung bases. Periods favors atelectasis over consolidation. However, mild degree of air space consolidation cannot totally be excluded. - Nebulizer treatments, incentive spirometer use. Counseled with smoking cessation. - Trend CBC Acute on chronic kidney disease - Patient probably has chronic kidney disease, creatinine 2008 showed 1.90--> 1.83 - Encourage by mouth fluid intake - Avoid nephrotoxins - Trend BMP Tobacco abuse/ dependence - Smoking cessation - Nicotine patch HTN, accelerated - Pindolol 5 mg every 12 - Will add clonidine when necessary - Monitor BP trend HLD - Will discuss with patient statin use and ASCVD risk. - Heart Healthy diet DVT prop ambulatory - if decrease ambulation will start lovenox This note was transcribed by loulou [Ish Doyle]. I, Dr. Ernesto Gonzalez personally performed the history, physical exam, and medical decision making; and confirmed the accuracy of the information in the transcribed note. Authenticated by Dr. Ernesto Gonzalez on 01/10/17 at 1420. Thank you for this consultation. We will follow patient with you. Code Status Full code Discussed Condition With Patient, nursing, Dr. Glover Problem Qualifiers (1) Adjustment disorder: Qualified Code: F43.23 - Adjustment disorder with mixed anxiety and depressed mood Ish Tee Jan 10, 2017 14:37 Ernesto Gonzalez MD Jan 10, 2017 23:48
[2017-01-10] MEDS ORDERED: cloNIDine HCL 0.1 MG TAB PO PRN (14:45)
[2017-01-10 16:27] VITALS: BP 194/86; PULSE 80; RESP 18; TEMP 98.3; O2SAT 98
[2017-01-10] MEDS ORDERED: RESP: ALBUTEROL 2.5 MG/IPRATROPIUM 0.5 MG NEB (PRN) NEB (16:45)
[2017-01-10 16:55] LABS: HEMOGLOBIN A1a 0.9 %; HEMOGLOBIN A1b 1.9 %; HEMOGLOBIN Ao 85.9 %; HEMOGLOBIN LA1C 1.8 %; HEMOGLOBIN P3 3.7 %
[2017-01-10] MEDS ORDERED: RESP: ALBUTEROL 2.5 MG/IPRATROPIUM 0.5 MG NEB (SCH) NEB (20:00)
[2017-01-10] MEDS ORDERED: AMITRIPTYLINE HCL 25 MG TAB PO SCH (21:00)
[2017-01-10] MEDS: ACETAMINOPHEN 325 MG TAB PO PRN (21:44)
[2017-01-11 00:10] VITALS: O2SAT 98
[2017-01-11 00:11] VITALS: O2SAT 97
[2017-01-11] MEDS ORDERED: NALOXONE HCL 0.4 MG/ML AMP ONE (00:23)
[2017-01-11] MEDS ORDERED: LORazepam 2 MG/ML VIAL IV PUSH PRN ×4 (00:45)
[2017-01-11] MEDS ORDERED: LORazepam 2 MG TAB PO PRN (00:45)
[2017-01-11] MEDS ORDERED: SODIUM CHLORIDE 0.9% FLUSH 10 ML FLUSH IV FLUSH SCH (00:45)
[2017-01-11] MEDS ORDERED: FLUMAZENIL 0.5 MG/5 ML VIAL IV PUSH PRN (00:45)
[2017-01-11] MEDS ORDERED: cloNIDine HCL 0.1 MG TAB PO PRN (00:45)
[2017-01-11] MEDS ORDERED: SODIUM CHLORIDE 0.9% FLUSH 10 ML FLUSH IV FLUSH PRN (00:45)
[2017-01-11] MEDS ORDERED: NALOXONE HCL 0.4 MG/ML AMP IV ONE (00:45)
[2017-01-11] MEDS ORDERED: LORazepam 1 MG TAB PO PRN (00:45)
[2017-01-11] MEDS: LORazepam 2 MG/ML VIAL IV PRN (00:52)
--- NOTE | 2017-01-11 00:58 | HHI.PR ---
Addendum to Inpatient Note Addendum Reason: Additional Documentation Additional Information S: EliceoT called. Resident team heard overhead page. Arrived to find Erik nurse at bedside, who was able to place IV. Per patient's nurse, patient was unresponsive. Patient has a history of implanted pain pump for back pain. Last dose of morphine was at 4 PM. Upon further chart review, it was found that patient drinks 3 bottles a day of alcohol and has been in the emergency department for the last 2 days without any alcohol. Patient was initially responsive only to pain, but then suddenly woke up complaining of back pain. Patient seemed agitated at that time. O: Vitals: Blood pressure 180s over 80s, pulse 80, pulse ox 97%, temperature 99.1F , respiratory rate of 12 Gen.: Unresponsive male, lying in bed breathing slowly. Then patient woke up suddenly without intervention. HEENT: Pupils 3 mm, equal round and reactive to light, mildly dry mucous membranes Cardiovascular: Regular rate and rhythm Respiratory: Deep, slow breathing with a respiratory rate of 12 Abdomen: Soft, nontender, nondistended Extremities: Warm and well-perfused Neuro/psych: Patient initially only opened his eyes to sternal rub. After patient woke up suddenly, seemed agitated, was alert and oriented to person, patient was in the hospital but thought he was in [place], patient did not know the date but knew it is 2016. Patient seemed agitated after waking up, standing up, walking around, complaining of back pain, sitting down, lying down , getting back up. A/P: Patient is a 56-year-old man with a history of alcohol use of 3 bottles per day who was in the emergency department for the past 2 days without alcohol who presents unresponsive. Erik was called. Patient most likely unresponsive because of post ictal state after alcohol withdrawal seizure. Concern for delirium tremens. Fingerstick blood glucose in the 140s Patient woke up prior to receiving Narcan IV Ativan per [facility] protocol Transfer to intensive care Nurse instructed to call [facility] doctor front desk manager to facilitate transfer. Prolactin, BMP, lactic acid, CBC, troponin, ABG canceled because patient woke up Rally pack Consider IV fluid hydration Seizure precautions Neuro checks Addendum: Within minutes of leaving patient who was walking and talking when we left, another EliceoT was called on the same patient and resident team heard on overhead page. Dr. Ortega at bedside. Per nurse report, patient was on his side, seizing in bed with limbs contracted and foaming at the mouth. Dr. Ortega agrees with Ativan and transfer to intensive care Yash Galvan MD R1 Jan 11, 2017 00:58
[2017-01-11 01:18] LABS: AUTOMATED NEUTROPHIL # 11.8 TH/MM3 (1.8-7.7); BASOPHIL # 0.1 TH/MM3 (0-0.2); BASOPHIL % 0.5 % (0.0-2.0); HEMATOCRIT 40.2 % (39.0-51.0); HEMO FLAGS DIFF FINAL; LYMPH % 18.7 % (9.0-44.0); MEAN CELL VOLUME 92.9 FL (80.0-100.0); MEAN CORPUSCULAR HEMOGLOBIN 29.8 PG (27.0-34.0); MEAN CORPUSCULAR HGB CONC 32.1 % (32.0-36.0); MONO % 7.9 % (0.0-8.0); NEUT % 72.9 % (16.0-70.0); PLATELET COUNT 175 TH/MM3 (150-450); RED BLOOD COUNT 4.32 MIL/MM3 (4.50-5.90); RED CELL DISTRIBUTION WIDTH 13.9 % (11.6-17.2); WHITE BLOOD COUNT 16.3 TH/MM3 (4.0-11.0)
[2017-01-11 01:33] LABS: ANION GAP 27 MEQ/L (5-15); BICARBONATE 13.1 MEQ/L (21.0-32.0); BLOOD UREA NITROGEN 20 MG/DL (7-18); CHLORIDE 99 MEQ/L (98-107); GLOMERULAR FILTRATION RATE 30 ML/MIN (>89); POTASSIUM 4.1 MEQ/L (3.5-5.1); SODIUM (NA) 139 MEQ/L (136-145)
[2017-01-11 03:13] LABS: LACTIC ACID GHOST NOT REPORTABLE
[2017-01-11 06:03] LABS: AUTOMATED NEUTROPHIL # 10.2 TH/MM3 (1.8-7.7); BASOPHIL % 0.1 % (0.0-2.0); HEMATOCRIT 34.7 % (39.0-51.0); HEMO FLAGS DIFF FINAL; LYMPHOCYTE # 1.7 TH/MM3 (1.0-4.8); MEAN CORPUSCULAR HEMOGLOBIN 29.5 PG (27.0-34.0); MEAN CORPUSCULAR HGB CONC 33.9 % (32.0-36.0); MONO % 8.1 % (0.0-8.0); NEUT % 78.8 % (16.0-70.0); PLATELET COUNT 141 TH/MM3 (150-450); RED BLOOD COUNT 3.99 MIL/MM3 (4.50-5.90); RED CELL DISTRIBUTION WIDTH 13.2 % (11.6-17.2)
[2017-01-11 06:27] LABS: BICARBONATE 24.6 MEQ/L (21.0-32.0); POTASSIUM 3.7 MEQ/L (3.5-5.1)
[2017-01-11] MEDS ORDERED: MULTIVITAMINS/MINERALS THERAPEUTIC TAB PO SCH (09:00)
[2017-01-11] MEDS ORDERED: NICOTINE 21 MG/24 HR PATCH T-DERMAL SCH (09:00)
[2017-01-11] MEDS ORDERED: FOLIC ACID 1 MG TAB PO SCH (09:00)
[2017-01-11] MEDS ORDERED: THIAMINE HCL 100 MG TAB PO SCH (09:00)
--- NOTE | 2017-01-11 10:11 | HHI.PR ---
Addendum to Inpatient Note Addendum Reason: Additional Documentation Additional Information Patient was seen yesterday in consultation in the psychiatric unit. He has a history of hypertension, depression, chronic back pain. He has a pain pump in place. His reports the pain pump has Dilaudid and baclofen. He was initially admitted to the psychiatric unit for suicidal ideation. Overnight, the patient reportedly had a seizure. He was combative and was transferred to the ICU. More history obtained from the patient's Rhoda Red. He does not drink alcohol. On reviewing his medical record with her. Apparently he had a seizure a month ago and was taken to another hospital where he was told it was medication related. I reviewed his medications with his . He has Ativan at home written for 2 mg every 8 hours as needed for anxiety. However his reports that he takes it scheduled. Apparently since he arrived at the psychiatric unit 2 days ago, he has not received any Ativan since it is supposed to be on as-needed basis. The patient is seen in the ICU this morning. He is awake, alert, and oriented. He ate breakfast. He reports that he is always shaky. He denied using any alcohol or other illicit drugs except for what is prescribed to him prior to coming to the hospital. Plan: - This is his second seizure for the past 2 months. It is possibly related to benzodiazepine withdrawal. However I believe he would benefit from a Neurologist evaluation to ensure there is no other pathology. - I will schedule Ativan, at a lower dose to avoid oversedation 1m PO TID. Keep PRN Ativan available for seizures. - Appreciate Neurology and psychiatry input. I discussed with Dr. Trujillo who is concerned about medication abuse. Patient is on a lot of medications from his pain management physician. I did discuss with his that ideally he should be weaned off some of these medications. Ernesto Gonzalez MD Jan 11, 2017 10:11
[2017-01-11] MEDS ORDERED: NS + KCL 20 MEQ INJ 1,000 ML IV SCH (10:15)
[2017-01-11] MEDS ORDERED: LORazepam 1 MG TAB PO SCH (14:00)
[2017-01-11] MEDS ORDERED: REMOVE OLD NICODERM (NICOTINE) PATCH T-DERMAL SCH (21:00)
[2017-01-12] MEDS ORDERED: LEVE500 PO (13:28)
== END 2017-01-11 01:10 | disposition short-term general hospital (02) | DRG 882 ==
LOC: NEDAMB 16:52 → NEDA 01-09 13:26 → H260 01-09 14:10
PROVIDERS: ADMIT Psychiatry & Neurology Psychiatry; ATTEND Psychiatry & Neurology Psychiatry
DX: F43.23 Adjustment disorder with mixed anxiety and depressed mood (principal); N17.9 Acute kidney failure, unspecified; R45.851 Suicidal ideations; G40.89 Other seizures; Z78.1 Physical restraint status; F13.230 Sedative, hypnotic or anxiolytic dependence with withdrawal, uncomplicated; F10.230 Alcohol dependence with withdrawal, uncomplicated; F17.210 Nicotine dependence, cigarettes, uncomplicated; F41.9 Anxiety disorder, unspecified; F32.9 Major depressive disorder, single episode, unspecified; M54.9 Dorsalgia, unspecified; D72.829 Elevated white blood cell count, unspecified; G89.29 Other chronic pain; Z96.89 Presence of other specified functional implants; N18.9 Chronic kidney disease, unspecified; I12.9 Hypertensive chronic kidney disease with stage 1 through stage 4 chronic kidney disease, or unspecified chronic kidney disease; E78.5 Hyperlipidemia, unspecified; Z91.5 Personal history of self-harm
CPT/HCPCS: 71010; 80048; 80053; 80061; 80307; 81001; 83036; 83605; 84146; 84484; 85025; 93970; 94150; 94664; 96365; 96372; 96375; J0456; J0696; J2060; J2310; J7050

== ENCOUNTER 2017-01-11 01:15 | Inpatient (IN) | payer MEDICARE, MEDICAID ==
[2017-01-11] VITALS (13 sets, daily range): BP systolic 120–154; BP diastolic 58–76; PULSE 72–95; RESP 12–19; TEMP 98.9; O2SAT 92–100
[~2017-01-11 01:15] MED LIST: AMLO5TAB2 PO; BACL10TA PO; CYMB60CA PO; GABA100C4 PO; GABA300C5 PO; LORA-475 PO; MIDO2.5T PO; MORP1TAB26 PO; NIFE60TA58 PO; OMEP20TA PO; PIND5 PO
[2017-01-11] MEDS ORDERED: CHLORHEXIDINE GLUCONATE 2 % 1 PACK (2 CLOTHS)(extra cloths) TOPICAL PRN (01:45)
[2017-01-11] MEDS ORDERED: LORazepam 1 MG TAB PO PRN (01:45)
[2017-01-11] MEDS ORDERED: LORazepam 2 MG TAB PO PRN (01:45)
[2017-01-11] MEDS ORDERED: SODIUM CHLORIDE 0.9% FLUSH 10 ML FLUSH IV FLUSH PRN ×2 (01:45)
[2017-01-11] MEDS ORDERED: CHLORHEXIDINE GLUCONATE 2 % 1 PACK (2 CLOTHS) TOP PRN (01:45)
[2017-01-11] MEDS ORDERED: FLUMAZENIL 0.5 MG/5 ML VIAL IV PUSH PRN (01:45)
[2017-01-11] MEDS ORDERED: MISCELLANEOUS NURSING INFORMATION XX SCH (01:45)
[2017-01-11] MEDS ORDERED: LORazepam 2 MG/ML VIAL IV PUSH PRN ×6 (01:45)
[2017-01-11] MEDS ORDERED: CHLORHEXIDINE GLUCONATE 2 % 1 PACK (2 CLOTHS) TOP SCH (04:00)
[2017-01-11] MEDS: CHLORHEXIDINE GLUCONATE 2 % 1 PACK (2 CLOTHS)(taper/protocol) TOPICAL SCH (04:00)
--- NOTE | 2017-01-11 05:27 | HHI.HP ---
HPI Service [facility] Primary Care Physician Unknown Admission Diagnosis Diagnoses: Travel History International Travel<30 Days: No Contact w/Intl Traveler <30 Da: No Traveled to Known Affected Are: No History of Present Illness Rapid response was called and this patient last night. Initially respiratory response was called because patient was found by his nurse in his room kneeling and was having tremors. He then had an episode of seizures which was witnessed. This is the reason why they called rapid response. Per report, and rapid response team has ordered for abdomen IV or IM as treatment for alcohol withdrawal. Patient's nurse and also called me to update on the patient and S2 were talking , patient was actually having seizures in his room. At this time, patient was actually was actually sleeping on his side. Last noted the patient was going into generalized tonic-clonic seizures, which are living and forming from his mouth. Therefore I had advised to call have rapid response second time. Upon my arrival, patient is quite lethargic. He just received Ativan 2 mg IV prior. Unable to obtain any further history from patient. Review of Systems not able to obtain ROS Past Family Social History Past Medical History unable to obtain Past Surgical History unable to obtain per EMR, baclfen pump fistula repair Allergies: Coded Allergies: No Known Allergies (Verified , 01/08/17) Family History unable to obtain Social History per EMR and nursing staff pt is a chronic drinker Physical Exam Vital Signs Vital Signs Date Time Temp Pulse Resp B/P Pulse Ox O2 Delivery O2 Flow Rate FiO2 01/11/17 04:00 87 01/11/17 04:00 87 14 120/59 100 01/11/17 03:00 88 14 120/58 97 01/11/17 02:00 95 01/11/17 02:00 95 14 135/58 92 Physical Exam GENERAL: This is a well-nourished, well-developed patient, sedated, post ictal, non communicative SKIN: No rashes, ecchymoses or lesions. Cool and dry. HEAD: Atraumatic. Normocephalic. No temporal or scalp tenderness. EYES: No scleral icterus. No injection or drainage. ENT: Nose without bleeding, purulent drainage or septal hematoma. Airway patent. NECK: Trachea midline. No JVD CARDIOVASCULAR: Regular rate and rhythm without murmurs, gallops, or rubs. RESPIRATORY: Clear to auscultation. Breath sounds equal bilaterally. No wheezes , rales, or rhonchi. GASTROINTESTINAL: Abdomen soft, non-tender, nondistended. No guarding. MUSCULOSKELETAL: Extremities without clubbing, cyanosis, or edema. No calf asymmetry NEUROLOGICAL: post ictal, sedated, not responding to sternal rub. On re exam in ICU pt was much more awake, alert, moving Laboratory Laboratory Tests Test 01/11/17 01:30 Nasal Screen MRSA (PCR) MRSA NOT DETECTED Assessment and Plan Assessment and Plan Impression: alcohol withdrawal seizures suicidal ideation Plan: CIWA protocol pt did get quite sedated with ativan 2mg iv thus will continue for now only if sedation is not adequate, will consider precedex drip labs in am reviewed pts med list on emr - somewhat contradicting as pt is on midodrine and antihypertensives both thus written nursing order to verify meds again with DVT prophylaxis with SCD GI prophyalxis on pantoprazole Discussed Condition With patient, halicat team and nursing staff Physician Certification 2 Midnight Certification Type: Admission for Inpatient Services Order for Inpatient Services The services are ordered in accordance with Medicare regulations or non- Medicare payer requirements, as applicable. In the case of services not specified as inpatient-only, they are appropriately provided as inpatient services in accordance with the 2-midnight benchmark. Estimated LOS (days): 2 days is the estimated time the patient will need to remain in the hospital, assuming treatment plan goals are met and no additional complications. Post-Hospital Plan: Home Murray Ortega MD Jan 11, 2017 05:27
[2017-01-11] MEDS ORDERED: SODIUM CHLORIDE 0.9% FLUSH 10 ML FLUSH IV FLUSH SCH (09:00)
[2017-01-11] MEDS: PANTOPRAZOLE SOD 20 MG DELAYED RELEASE TAB PO SCH (10:16)
[2017-01-11] MEDS: SODIUM CHLORIDE 0.9% FLUSH 10 ML FLUSH IV FLUSH SCH ×2 (10:16→20:07)
[2017-01-11] MEDS: NIFEdipine 60 MG SUSTAINED RELEASE TAB PO SCH (10:16)
[2017-01-11] MEDS: NS + KCL 20 MEQ INJ 1,000 ML IV SCH ×2 (12:18→20:07)
[2017-01-11] MEDS: LORazepam 1 MG TAB PO SCH ×2 (13:54→21:41)
--- NOTE | 2017-01-11 14:02 | HHI.PYPN ---
Subjective Remarks Patient was seen today for psychiatric reevaluation in the ICU, patient is found calm, cooperative in good spirits, he denies depressive symptoms, he denies anhedonia, hopelessness, helplessness, problems with appetite, weight level of concentration he denies suicidal and homicidal ideation, he denies visual and auditory hallucinations, patient is oriented 3, without fluctuation of consciousness, attention deficit gross cognitive impairment present. Patient says that he doesn't remember the reason he is in the hospital, he says that he passed out "maybe due to the medications and taking, maybe by pain"he denies the use of alcohol, he denies the use of illicit drugs, he denies that he is abusing his benzodiazepines and opiates, he says that he takes his Ativan as prescribed, initially 2 mg 3 times a day. However, patient admits that once he was hospitalized in psychiatry his Ativan dose was significantly decreased, which might led to withdrawal and seizures. Review of Systems Other No somatic complaints at this moment Objective Alert: Yes [place]: Person, Place, Date, Situation Mood: Calm Affect: Appropriate Memory Intact: Immediate, Recent, Remote Hallucinations: Other (no perceptual disturbances) Delusions: No Delusion Type: Other (none elicited) Suicidal: Ideation (no SI) Homicidal: Ideation (no HI) Insight/Judgment Fair Labs Test 01/11/17 01:30 Nasal Screen MRSA (PCR) MRSA NOT DETECTED Vitals/IOs Vital Signs Date Time Temp Pulse Resp B/P Pulse Ox O2 Delivery O2 Flow Rate FiO2 01/11/17 10:00 93 01/11/17 06:00 18 140/69 100 Assessment & Plan Problem List: (1) Adjustment disorder Assessment & Plan: Patient does not present any evidence of subjective or objective symptomatology of depression, anxiety, tien or psychosis at this moment. He denies suicidal and homicidal ideation, he denies visual and auditory hallucinations. Patient is oriented 3. Patient is future oriented, he seems to have protective factor for suicidality. Recent overdoses to be related with substance abuse. He does not meet criteria for psychiatric admission. Extensive support, psycho education and motivation provided. Patient was advised to discussed with his psychiatrist the convenience of switching his medication for anxiety. He verbalized agreement and understanding with the plan. Fu act can be lifted. ICD Code: F43.20 Assessment & Plan Estimated LOS: days Justification for Cont. Inpt. Patient does not meet criteria for psychiatric admission at this moment. Problem Qualifiers (1) Adjustment disorder: Qualified Code: F43.21 - Adjustment disorder with depressed mood Rich Trujillo MD Jan 11, 2017 14:02
--- NOTE | 2017-01-11 14:27 | HHI.PR ---
Subjective Remarks Delayed entry. Patient seen at 10 AM. Note was filed under the wrong visit number. Patient was seen yesterday in consultation in the psychiatric unit. He has a history of hypertension, depression, chronic back pain. He has a pain pump in place. His reports the pain pump has Dilaudid and baclofen. He was initially admitted to the psychiatric unit for suicidal ideation. Overnight, the patient reportedly had a seizure. He was combative and was transferred to the ICU. More history obtained from the patient's Rhoda Red. He does not drink alcohol. On reviewing his medical record with her. Apparently he had a seizure a month ago and was taken to another hospital where he was told it was medication related. I reviewed his medications with his . He has Ativan at home written for 2 mg every 8 hours as needed for anxiety. However his reports that he takes it scheduled. Apparently since he arrived at the psychiatric unit 2 days ago, he has not received any Ativan since it is supposed to be on as-needed basis. The patient is seen in the ICU this morning. He is awake, alert, and oriented. He ate breakfast. He reports that he is always shaky. He denied using any alcohol or other illicit drugs except for what is prescribed to him prior to coming to the hospital. Plan: - This is his second seizure for the past 2 months. It is possibly related to benzodiazepine withdrawal. However I believe he would benefit from a Neurologist evaluation to ensure there is no other pathology. - I will schedule Ativan, at a lower dose to avoid oversedation 1m PO TID. Keep PRN Ativan available for seizures. - Appreciate Neurology and psychiatry input. I discussed with Dr. Trujillo who is concerned about medication abuse. Patient is on a lot of medications from his pain management physician. I did discuss with his that ideally he should be weaned off some of these medications. Objective Vitals Vital Signs Date Time Temp Pulse Resp B/P Pulse Ox O2 Delivery O2 Flow Rate FiO2 01/11/17 10:00 93 01/11/17 08:00 72 01/11/17 06:00 93 01/11/17 06:00 93 18 140/69 100 01/11/17 05:00 84 13 128/61 99 01/11/17 04:00 87 01/11/17 04:00 87 14 120/59 100 01/11/17 03:00 88 14 120/58 97 01/11/17 02:00 95 01/11/17 02:00 95 14 135/58 92 I/O 01/10/17 01/10/17 01/10/17 01/11/17 01/11/17 01/11/17 07:00 15:00 23:00 07:00 15:00 23:00 Intake Total 263 ml Output Total 400 ml 300 ml Balance -400 ml -37 ml Intake Oral 100 ml IV Total 163 ml Output Urine Total 400 ml 300 ml # Bowel Movements 1 Ernesto Gonzalez MD Jan 11, 2017 14:27
--- NOTE | 2017-01-11 17:36 | MB ---
cc: SHO DENSON DATE OF CONSULTATION: 01/11/2017 REASON FOR CONSULTATION: Seizure. HISTORY OF PRESENT ILLNESS Mr. Red is a 56 year old man who is admitted to the psychiatry romero under Fu act after he was making suicidal threats and ideation. He has a history of depression. His states that he is acting very violently and belligerently as well. He has a history of two seizures about a month ago evaluation [place] with normal CT of the brain and EEG. There were grand mal seizures according to his where he lost consciousness and generalized tonic activity. He had a recurrent generalized seizure this morning on the psychiatry romero and was then therefore transferred to intensive medical care unit for further evaluation. Apparently he takes Ativan daily but has been off the medicine for two days. The other seizures he had however, he was not withdrawing from any medication. Denies significant alcohol use. PAST HISTORY 1. History of chronic back pain. 2. History of cervical spine surgery 3. History of reflex sympathetic dystrophy in the left leg after an injury, he has a pain pump in place. SOCIAL HISTORY Denies drug use. Denies alcohol use. He does smoke. MEDICATIONS Current medications; 1. Ativan 1 mg p.o. q.8 h. 2. Procardia XL 60 mg daily. 3. Protonix 20 mg daily. 4. Ativan IV as needed for seizure. NEUROLOGIC EXAMINATION His blood pressure is 154/76, pulse is 85, respirations 19, temperature he has been afebrile. Higher cortical functions at this time are normal. He is alert, oriented x3. Normal recall follows commands. Cranial nerves intact. Motor exam normal strength and tone of all groups. There is no drift. Reflexes are symmetric. LABORATORY DATA The white count 13,000, hemoglobin 11.8, hematocrit 34.7%, platelets 141,000. Sodium 137, potassium 3.7, chloride 102, CO2 is 24.6. The BUN is 19, creatinine 1.5, GFR is 48, glucose 71, tox screen positive for opiates. IMPRESSION Generalized tonic-clonic seizure which was recurrent possibly contributed to by Ativan withdraw, however, he states when he had his seizures one month ago there was no withdraw from benzodiazepines. He denies alcohol abuse. RECOMMENDATIONS Would recommend starting Keppra 500 mg b.i.d. he is not able to have a MRI due to his pain pump, however we will obtain a repeat CT of the brain as well as a electroencephalogram, placed him under seizure precautions, he should not drive for until six months being seizure free. MD CANELO Church/chavo /5:07 PM /5:25 PM
--- NOTE | 2017-01-11 20:03 | RADRPT ---
EXAM DATE/TIME: 01/11/2017 19:35 [facility] COMPARISON: No previous studies available for comparison. INDICATIONS : Seizures. RADIATION DOSE: 49.64 CTDIvol (mGy) MEDICAL HISTORY : Hypertension. SURGICAL HISTORY : None. ENCOUNTER: Initial ACUITY: 1 day PAIN SCALE: 0/10 LOCATION: cranial TECHNIQUE: Multiple contiguous axial images were obtained of the head. Using automated exposure control and adj ustment of the mA and/or kV according to patient size, radiation dose was kept as low as reasonably a chievable to obtain optimal diagnostic quality images. DICOM format image data is available electro nically for review and comparison. FINDINGS: CEREBRUM: The ventricles are normal for age. No evidence of midline shift, mass lesion, hemorrhage or acute in farction. No extra-axial fluid collections are seen. POSTERIOR FOSSA: The cerebellum and brainstem are intact. The 4th ventricle is midline. The cerebellopontine angle i s unremarkable. EXTRACRANIAL: The visualized portion of the orbits is intact. The right mastoid air cells are hypoplastic. SKULL: The calvaria is intact. No evidence of skull fracture. CONCLUSION: Unremarkable noncontrast CT. Yash Jeffrey MD on January 11, 2017 at 20:00 Board Certified Radiologist. This report was verified electronically.
[2017-01-11] MEDS: levETIRAcetam 500 MG TAB PO SCH (20:07)
[2017-01-12] VITALS (8 sets, daily range): BP systolic 147–182; BP diastolic 72–93; PULSE 69–97; RESP 11–21; TEMP 98.2–99; O2SAT 94–95
[2017-01-12] MEDS: CHLORHEXIDINE GLUCONATE 2 % 1 PACK (2 CLOTHS)(taper/protocol) TOPICAL SCH (04:00)
[2017-01-12] MEDS: LORazepam 1 MG TAB PO SCH ×2 (05:08→14:36)
[2017-01-12 05:58] LABS: AUTOMATED NEUTROPHIL # 6.2 TH/MM3 (1.8-7.7); BASOPHIL % 0.4 % (0.0-2.0); EOSINOPHIL % 0.1 % (0.0-4.0); HEMATOCRIT 34.7 % (39.0-51.0); HEMO FLAGS DIFF FINAL; LYMPH % 27.1 % (9.0-44.0); LYMPHOCYTE # 2.8 TH/MM3 (1.0-4.8); MEAN CELL VOLUME 87.9 FL (80.0-100.0); MEAN CORPUSCULAR HEMOGLOBIN 30.1 PG (27.0-34.0); MEAN CORPUSCULAR HGB CONC 34.3 % (32.0-36.0); MONO % 11.7 % (0.0-8.0); NEUT % 60.7 % (16.0-70.0); PLATELET COUNT 130 TH/MM3 (150-450); RED BLOOD COUNT 3.95 MIL/MM3 (4.50-5.90); RED CELL DISTRIBUTION WIDTH 13.4 % (11.6-17.2); WHITE BLOOD COUNT 10.3 TH/MM3 (4.0-11.0)
[2017-01-12 06:21] LABS: ALT (GPT) 38 U/L (12-78); ANION GAP 8 MEQ/L (5-15); AST (GOT) 42 U/L (15-37); BICARBONATE 27.3 MEQ/L (21.0-32.0); BLOOD UREA NITROGEN 14 MG/DL (7-18); CHLORIDE 106 MEQ/L (98-107); GLOMERULAR FILTRATION RATE 52 ML/MIN (>89); MAGNESIUM 1.8 MG/DL (1.5-2.5); POTASSIUM 3.3 MEQ/L (3.5-5.1); SODIUM (NA) 141 MEQ/L (136-145)
[2017-01-12 06:22] LABS: ALKALINE PHOSPHATASE 61 U/L (45-117); TOTAL BILIRUBIN ADULT 0.6 MG/DL (0.2-1.0)
[2017-01-12] MEDS: levETIRAcetam 500 MG TAB PO SCH (07:39)
[2017-01-12] MEDS: NIFEdipine 60 MG SUSTAINED RELEASE TAB PO SCH (07:39)
[2017-01-12] MEDS: PANTOPRAZOLE SOD 20 MG DELAYED RELEASE TAB PO SCH (07:39)
[2017-01-12] MEDS: SODIUM CHLORIDE 0.9% FLUSH 10 ML FLUSH IV FLUSH SCH (07:40)
--- NOTE | 2017-01-12 08:02 | HHI.PR ---
Review/Management Diagnosis Recurrent sz---possibly related to benzodiazepine withdrawal, but prior seizure X 2 was not associated with withdrawal. Therefore, recommend continuing keppra. Ok from neuro standpoint to transfer to psychiatry when ok with medicine service Diagnosis/Plan: Subjective Subjective Comments No acute events reported No sz, tolerating keppra well Active Medications Current Medications Medications (Trade) Dose Ordered Sig/Carmen Route Start Time Stop Time Status Last Admin Miscellaneous Information Patient in critical care unit? Ass... [id number] .XX 01/11/17 01:45 01/11/17 01:45 (Chlorhexidine 2% Cloth) 3 pack DAILY@04 TOPICAL 01/11/17 04:00 01/15/17 04:01 01/12/17 04:00 (Chlorhexidine 2% Cloth) 3 pack UNSCH PRN TOPICAL 01/11/17 01:45 01/16/17 01:40 (NS Flush) 2 ml UNSCH PRN IV FLUSH 01/11/17 01:45 (NS Flush) 2 ml BID IV FLUSH 01/11/17 09:00 01/12/17 07:40 (Ativan Inj) 1 mg Q15M PRN IV PUSH 01/11/17 01:45 (Ativan Inj) 1 mg Q2H PRN IV PUSH 01/11/17 01:45 (Romazicon Inj) 0.2 mg Q1M PRN IV PUSH 01/11/17 01:45 (Ativan) 1 mg Q4H PRN PO 01/11/17 01:45 (Ativan Inj) 1 mg Q4H PRN IV PUSH 01/11/17 01:45 01/11/17 03:43 (Ativan) 2 mg Q2H PRN PO 01/11/17 01:45 (Ativan Inj) 2 mg Q2H PRN IV PUSH 01/11/17 01:45 (Ativan Inj) 2 mg Q1H PRN IV PUSH 01/11/17 01:45 01/11/17 01:58 (Ativan Inj) 2 mg Q15M PRN IV PUSH 01/11/17 01:45 (Procardia Xl) 60 mg DAILY PO 01/11/17 09:00 01/12/17 07:39 Pantoprazole Sodium 20 mg 20 mg DAILY PO 01/11/17 09:00 01/12/17 07:39 (NS + KCl 20 Meq Inj) 1,000 ml @ 100 mls/hr Q10H IV 01/11/17 10:45 01/11/17 20:07 (Ativan) 1 mg Q8HR PO 01/11/17 14:00 01/12/17 05:08 (Keppra) 500 mg Q12HR PO 01/11/17 21:00 01/12/17 07:39 Allergies Allergies Coded Allergies No Known Allergies (Verified01/08/17) Exam I&O / VS 01/11/17 01/11/17 01/12/17 15:00 23:00 07:00 Intake Total 263 ml 1005 ml 680 ml Output Total 300 ml 900 ml 600 ml Balance -37 ml 105 ml 80 ml Intake Oral 100 ml 240 ml 480 ml IV Total 163 ml 765 ml 200 ml Output Urine Total 300 ml 900 ml 600 ml # Bowel Movements 1 1 Vital Signs Date Time Temp Pulse Resp B/P Pulse Ox O2 Delivery O2 Flow Rate FiO2 01/12/17 06:00 69 01/12/17 05:00 73 01/12/17 04:00 81 01/12/17 04:00 98.5 81 11 158/77 94 01/12/17 02:00 97 01/12/17 00:00 98.9 77 16 147/72 94 01/12/17 00:00 77 01/11/17 22:00 76 01/11/17 20:00 77 01/11/17 20:00 98.9 77 18 144/69 93 01/11/17 18:00 94 01/11/17 16:00 85 01/11/17 16:00 85 19 154/76 95 01/11/17 14:00 90 01/11/17 12:00 84 12 143/66 99 01/11/17 12:00 84 01/11/17 10:00 93 01/11/17 08:00 72 Exam Comments alert, follow commands Cn intact Motor--denies focal weakness Objective Radiology Results CT brain--normal EEG---pending Micro and Labs Laboratory Tests Test 01/12/17 04:47 White Blood Count 10.3 Red Blood Count 3.95 Hemoglobin 11.9 Hematocrit 34.7 Mean Corpuscular Volume 87.9 Mean Corpuscular Hemoglobin 30.1 Mean Corpuscular Hemoglobin 34.3 Concent Red Cell Distribution Width 13.4 Platelet Count 130 Mean Platelet Volume 10.9 Neutrophils (%) (Auto) 60.7 Lymphocytes (%) (Auto) 27.1 Monocytes (%) (Auto) 11.7 Eosinophils (%) (Auto) 0.1 Basophils (%) (Auto) 0.4 Neutrophils # (Auto) 6.2 Lymphocytes # (Auto) 2.8 Monocytes # (Auto) 1.2 Eosinophils # (Auto) 0.0 Basophils # (Auto) 0.0 CBC Comment DIFF FINAL Differential Comment Sodium Level 141 Potassium Level 3.3 Chloride Level 106 Carbon Dioxide Level 27.3 Anion Gap 8 Blood Urea Nitrogen 14 Creatinine 1.40 Estimat Glomerular Filtration 52 Rate Random Glucose 75 Calcium Level 8.8 Magnesium Level 1.8 Total Bilirubin 0.6 Aspartate Amino Transf 42 (AST/SGOT) Alanine Aminotransferase 38 (ALT/SGPT) Alkaline Phosphatase 61 Total Protein 6.4 Albumin 3.2 Gopal Carreno PhD Jan 12, 2017 08:01
[2017-01-12] MEDS ORDERED: SENNOSIDES 8.6 MG TAB PO PRN (08:15)
--- NOTE | 2017-01-12 08:21 | HHI.PR ---
Subjective Remarks Follow-up seizure. No recurrence tolerating Keppra. No headache. Chronic back pain. Advised to decrease or discontinue benzos and narcotics. Discussed with RN Objective Vitals Vital Signs Date Time Temp Pulse Resp B/P Pulse Ox O2 Delivery O2 Flow Rate FiO2 01/12/17 06:00 69 01/12/17 05:00 73 01/12/17 04:00 81 01/12/17 04:00 98.5 81 11 158/77 94 01/12/17 02:00 97 01/12/17 00:00 98.9 77 16 147/72 94 01/12/17 00:00 77 01/11/17 22:00 76 01/11/17 20:00 77 01/11/17 20:00 98.9 77 18 144/69 93 01/11/17 18:00 94 01/11/17 16:00 85 01/11/17 16:00 85 19 154/76 95 01/11/17 14:00 90 01/11/17 12:00 84 12 143/66 99 01/11/17 12:00 84 01/11/17 10:00 93 I/O 01/11/17 01/11/17 01/11/17 01/12/17 01/12/17 01/12/17 07:00 15:00 23:00 07:00 15:00 23:00 Intake Total 263 ml 1005 ml 680 ml Output Total 400 ml 300 ml 900 ml 600 ml Balance -400 ml -37 ml 105 ml 80 ml Intake Oral 100 ml 240 ml 480 ml IV Total 163 ml 765 ml 200 ml Output Urine Total 400 ml 300 ml 900 ml 600 ml # Bowel Movements 1 1 Result Diagram: 01/12/17 0447 01/12/17 0447 Imaging Last Impressions Head CT 01/11/17 0000 Signed Impressions: Service Date/Time: December 19:35 - CONCLUSION: Unremarkable noncontrast CT. Yash Jeffrey MD Objective Remarks GENERAL: Well-developed, well-nourished in no distress SKIN: Warm and dry. HEAD: Atraumatic. Normocephalic. EYES: Pupils equal and round. No scleral icterus. No injection or drainage. ENT: No nasal bleeding or discharge. Mucous membranes pink and moist. NECK: Trachea midline. No JVD. CARDIOVASCULAR: Regular rate and rhythm. RESPIRATORY: No accessory muscle use. Clear to auscultation. Breath sounds equal bilaterally. GASTROINTESTINAL: Abdomen soft, non-tender, nondistended. MUSCULOSKELETAL: Extremities without clubbing, cyanosis, or edema. No obvious deformities. NEUROLOGICAL: Awake and alert. No obvious cranial nerve deficits. Motor grossly within normal limits. Five out of 5 muscle strength in the arms and legs. Normal speech. PSYCHIATRIC: Appropriate mood and affect; insight and judgment normal. Procedures None A/P Problem List: (1) Adjustment disorder ICD Code: F43.20 Status: Acute (2) Seizure ICD Code: R56.9 Status: Acute Assessment and Plan Seizure contributed by benzo withdrawal. Head CT without acute findings. Continue Keppra and seizure precautions. Follow-up EEG. Adjustment disorder. Fu act lifted by psychiatry. Restart home medication of Cymbalta and Neurontin Hypertension. Suboptimal control restart pindolol continue nifedipine. Discontinue Norvasc as patient already on another calcium channel herb Chronic kidney disease stage III likely related to hypertension with hypokalemia. Urinalysis unremarkable. Avoid nephrotoxins and replace potassium with 30 in Meq by mouth potassium 1. Repeat BMP and magnesium in the morning Mild AST elevation which is chronic. Outpatient follow-up Med rec completed DVT prophylaxis with SCD and early ambulation. Heparin subcutaneous Discharge Planning Discharge patient to home. Significantly improved earlier than expected Condition on discharge: Improved Regular Diet as tolerated Ad Madeleine activity. No driving, climbing heights, carrying young children and swimming alone Rx written: Ernesto Follow-up with primary care physician in one week I spent 35 minutes [id number] with the patient or on the romero discussing the patient's disposition, prognosis, and plan of care with patient's caregivers. Over half the time spent was devoted to counseling the patient regarding placement in coordinating care with caregivers and case management. Problem Qualifiers (1) Adjustment disorder: Qualified Code: F43.21 - Adjustment disorder with depressed mood Marco Antonio Parkinson MD Jan 12, 2017 08:21
[2017-01-12] MEDS ORDERED: PINDOLOL 5 MG TAB PO SCH (09:00)
[2017-01-12] MEDS ORDERED: ONDANSETRON HCL 4 MG/2 ML VIAL IV PRN (09:00)
[2017-01-12] MEDS ORDERED: RESP: ALBUTEROL 2.5 MG/3 ML NEB (PRN) NEB (09:00)
[2017-01-12] MEDS ORDERED: DULoxetine HCl DR 60 MG CAP PO SCH (09:00)
[2017-01-12] MEDS ORDERED: GABAPENTIN 100 MG CAP PO SCH (09:00)
[2017-01-12] MEDS ORDERED: CALCIUM CARBONATE 500 MG CHEWABLE TAB CHEW PRN (09:00)
[2017-01-12] MEDS ORDERED: GABAPENTIN 300 MG CAP PO SCH (09:00)
[2017-01-12] MEDS ORDERED: ACETAMINOPHEN 325 MG TAB PO PRN (09:00)
[2017-01-12] MEDS ORDERED: POTASSIUM CHLORIDE 10 MEQ CONTROLLED RELEASE TAB PO ONE (09:00)
[2017-01-12] MEDS ORDERED: ENALAPRILAT 1.25 MG/ML VIAL IV PRN (09:00)
[2017-01-12] MEDS ORDERED: HEPARIN SODIUM - SQ 10,000 UNITS/ML VIAL SQ SCH (09:00)
[2017-01-12] MEDS ORDERED: MORPHINE SULFATE 60 MG CONTROLLED RELEASE TAB PO SCH (09:00)
[2017-01-12] MEDS ORDERED: hydrALAZINE HCL 20 MG/ML VIAL IV PRN (09:00)
[2017-01-12] MEDS ORDERED: cloNIDine HCL 0.1 MG TAB PO PRN (09:00)
[2017-01-12] MEDS ORDERED: DOCUSATE SODIUM 50 MG/SENNA 8.6 MG TAB PO SCH (09:00)
[2017-01-12] MEDS ORDERED: LACTULOSE SYRUP 20 GM/30 ML CUP PO PRN (09:00)
[2017-01-12 11:45] LABS: CKMB 4.1 NG/ML (0.5-3.6)
[2017-01-12] MEDS ORDERED: LEVE500 PO (13:28)
--- NOTE | 2017-01-12 13:28 | HHI.DCPOC ---
Discharge Care Plan Diagnosis: (1) Seizure Your Health Problems Are: Difficulty with ADL Exercise Tolerance Goals to Promote Your Health * To prevent worsening of your condition and complications * To maintain your health at the optimal level Directions to Meet Your Goals Take your medications as prescribed Follow your dietary instruction Follow activity as directed Keep your appointments as scheduled Take your immunizations and boosters as scheduled If your symptoms worsen call your PCP, if no PCP go to Urgent Care Center or Emergency Room Smoking is Dangerous to Your Health. Avoid second hand smoke Call the 24-hour hour crisis hotline for domestic abuse at Marco Antonio Parkinson MD Jan 12, 2017 13:28
--- NOTE | 2017-01-13 10:38 | MG ---
cc: NABILA MCMAHAN MD Lab No:[id number] Date: 01/12/2017 Age: Sex: M Race: DATE OF : 1960 HISTORY OF PRESENT ILLNESS: A 56 year-old with psychiatric disorder. Posterior rhythm demonstrates 8-9 Hz alpha activity 20-40 microvolts low amplitude in the frontal channels good anterior-posterior gradient. Generalized slowing with transition into drowsy state followed by what appear to be stage I sleep with the appearance of vertex waves. Good EEG variability reactivity. Occasional tiny sharp transients, sleepiness. Reasonable driving with photic stimulation. Single EKG showing sinus rhythm. INTERPRETATION Normal awake sleep EEG. Clinical correlation. Nabila Mcmahan MD MG/ /10:11 AM /10:38 AM
== END 2017-01-12 15:50 | disposition home or self-care (01) | DRG 101 ==
LOC: HIMW 01:15
PROVIDERS: ADMIT Internal Medicine; ATTEND Internal Medicine
DX: G40.409 Other generalized epilepsy and epileptic syndromes, not intractable, without status epilepticus (principal); R45.851 Suicidal ideations; N18.3 Chronic kidney disease, stage 3 (moderate); F13.230 Sedative, hypnotic or anxiolytic dependence with withdrawal, uncomplicated; I12.9 Hypertensive chronic kidney disease with stage 1 through stage 4 chronic kidney disease, or unspecified chronic kidney disease; F17.210 Nicotine dependence, cigarettes, uncomplicated; G89.29 Other chronic pain; M54.9 Dorsalgia, unspecified; E87.6 Hypokalemia; F41.9 Anxiety disorder, unspecified; F43.21 Adjustment disorder with depressed mood
CPT/HCPCS: 70450; 80053; 82550; 82552; 83735; 85025; 87641; 95819; J1644; J2060; J3480

== ENCOUNTER 2017-08-01 17:24 | Inpatient (IN) | payer MEDICAID, MEDICARE ==
[~2017-08-01 17:24] MED LIST changes: +LEVE500 PO; -OMEP20TA PO; +OMEP20TA93 PO
[2017-08-01 17:57] VITALS: BP 169/73; PULSE 98; RESP 18; TEMP 98.1; O2SAT 96
[2017-08-01] MEDS ORDERED: OXYC15TA PO (18:08)
--- NOTE | 2017-08-01 18:25 | RADRPT ---
EXAM DATE/TIME: 08/01/2017 18:17 [facility] COMPARISON: CHEST SINGLE AP, January 08, 2017, 20:19. INDICATIONS : Fever. MEDICAL HISTORY : None. SURGICAL HISTORY : None. ENCOUNTER: Initial ACUITY: 1 day PAIN SCORE: Non-responsive. LOCATION: Bilateral chest FINDINGS: A single view of the chest demonstrates the lungs to be symmetrically aerated without evidence of mas s, infiltrate or effusion. The cardiomediastinal contours are unremarkable. Osseous structures are intact. CONCLUSION: Normal examination. Taurus Ontiveros MD on August 01, 2017 at 18:22 Board Certified Radiologist. This report was verified electronically.
[2017-08-01] MEDS ORDERED: LORazepam 2 MG/ML VIAL IM ONE (19:00)
[2017-08-01] MEDS ORDERED: HALOPERIDOL LACTATE 5 MG/ML AMP IM ONE (19:00)
--- NOTE | 2017-08-01 19:19 | PD ---
HPI Chief Complaint: Altered Mental Status Time Seen by Provider: 18:09 Travel History International Travel<30 days: No Contact w/Intl Traveler<30days: No Traveled to known affect area: No History of Present Illness HPI 57-year-old male that presents to the ED for evaluation of possible altered mental status. Patient has a history of adjustment disorder and psychiatric illness as well as chronic pain management with a pain pump to his back. Apparently per report from the apparently patient has a history of possible infection with an elevated white blood cell count. Patient was Fu acted by police after he was found to be acting bizarre and aggressive and stating that he was "[place]". My history from the patient is minimal as patient does appear to be actively psychotic and laughing with no apparent reason. Patient was restrained when I was in the room. He denies any pain or fever or chills. He denies any medical issues. Per patient he has no medical history. Again history is limited because of patient's mental status at this time. He has been here before for psychiatric evaluation in the past. He does appear to have an a bruise to his head of unclear etiology. is not present during my initial presentation and most of the history is obtained from the ambulance report and the Fu act which stated that patient was sent to [facility] and sent here for evaluation as patient her [facility] is out of their scope of practice. 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) Social History Alcohol Use: Yes Tobacco Use: Yes Substance Use: No Allergies-Medications (Allergen,Severity, Reaction): Coded Allergies: No Known Allergies (Verified Adverse Reaction, Unknown, 08/01/17) Reported Meds & Prescriptions Reported Meds & Active Scripts Active Keppra (Levetiracetam) 500 Mg Tab 500 Mg PO Q12HR Reported Oxycodone (Oxycodone HCl) 15 Mg Tab 15 Mg PO TID Midodrine 2.5 Mg Tab 2.5 Mg PO TID Jocelynn BERNARD (Duloxetine HCl) 60 Mg Capdr 120 Mg PO DAILY Gabapentin 300 Mg Cap 300 Mg PO BID Gabapentin 100 Mg Cap 100 Mg PO BID Nifedipine ER 24 HR (Nifedipine) 60 Mg Tab 60 Mg PO DAILY Baclofen 10 Mg Tab 10 Mg PO QID PRN Omeprazole 20 Mg Tab 20 Mg PO DAILY Amlodipine (Amlodipine Besylate) 5 Mg Tab 5 Mg PO DAILY Pindolol 5 Mg Tab 5 Mg PO Q12HR Review of Systems ROS Limitations: Psychotic, Poor Historian Except as stated in HPI: all other systems reviewed are Neg Physical Exam Exam Limitations: Poor Historian, Psychotic Narrative GENERAL: SKIN: Warm and dry. HEAD: Atraumatic. Normocephalic. EYES: Pupils equal and round 4 mms reactive to light and accomodation. No scleral icterus. No injection or drainage. ENT: No nasal bleeding or discharge. Mucous membranes pink and moist. Tongue is midline. No uvula deviation. NECK: Trachea midline. No JVD. CARDIOVASCULAR: Regular rate and rhythm. No murmurs, S3, S4. RESPIRATORY: No accessory muscle use. Clear to auscultation. Breath sounds equal bilaterally. GASTROINTESTINAL: Abdomen soft, non-tender, nondistended. Hepatic and splenic margins not palpable. MUSCULOSKELETAL: Extremities without clubbing, cyanosis, or edema. No obvious deformities. Full range of motion of the upper and lower extremities bilaterally. 2+ pulses bilaterally. NEUROLOGICAL: Awake and alert and oriented to person. No obvious cranial nerve deficits. Motor grossly within normal limits. Five out of 5 muscle strength in the arms and legs. Normal speech. PSYCHIATRIC: psychotic mood and affect; insight and judgment minimal Data Data Last Documented VS Vital Signs Date Time Temp Pulse Resp B/P (MAP) Pulse Ox O2 Delivery O2 Flow Rate FiO2 08/01/17 17:57 98.1 98 18 169/73 (105) 96 Orders Orders Electrocardiogram (08/01/17 18:08) Complete Blood Count With Diff (08/01/17 18:08) Comprehensive Metabolic Panel (08/01/17 18:08) Ckmb (Isoenzyme) Profile (08/01/17 18:08) Troponin I (08/01/17 18:08) Prothrombin Time / Inr (Pt) (08/01/17 18:08) Act Partial Throm Time (Ptt) (08/01/17 18:08) Blood Culture (08/01/17 18:08) C-Reactive Protein (Crp) (08/01/17 18:08) Urinalysis - C+S If Indicated (08/01/17 18:08) Cath For Specimen (08/01/17 18:08) Magnesium (Mg) (08/01/17 18:08) Thyroid Stimulating Hormone (08/01/17 18:08) Chest, Single Ap (08/01/17 18:08) Ct Brain W/O Iv Contrast(Rout) (08/01/17 18:08) Iv Access Insert/Monitor (08/01/17 18:08) Ecg Monitoring (08/01/17 18:08) Oximetry (08/01/17 18:08) Drug Screen, Random Urine (08/01/17 18:08) Alcohol (Ethanol) (08/01/17 18:08) Salicylates (Aspirin) (08/01/17 18:08) Tylenol (Acetaminophen) (08/01/17 18:08) Haloperidol Inj (Haldol Inj) (08/01/17 19:00) Lorazepam Inj (Ativan Inj) (08/01/17 19:00) MDM Medical Decision Making Medical Screen Exam Complete: Yes Emergency Medical Condition: Yes Medical Record Reviewed: Yes Differential Diagnosis Acute psychosis versus adjustment disorder versus infection versus encephalopathy versus acute kidney injury Narrative Course 57-year-old male that presents to the ED for evaluation of Tank boateng. Patient was properly examined and was found to have signs and symptoms of unclear etiology at this time. He does have a history of psychosis in the past. History is hard to obtain from patient as he himself isn't psychosis and very poor historian. No family member at bedside. Most of the report was given by Tank boateng and ED nurse report from ambulance and police. Patient had to be restrained for his own safety. At this time I recommend labs and imaging. Case will be signed out to incoming provider pending dispo and treatment plan. Benjamin Corral Aug 01, 2017 19:19
--- NOTE | 2017-08-01 19:26 | RADRPT ---
EXAM DATE/TIME: 08/01/2017 19:01 [facility] COMPARISON: CT BRAIN W/O CONTRAST, January 11, 2017, 19:35. INDICATIONS : Altered mental status; patient combative. RADIATION DOSE: 37.78 CTDIvol (mGy) MEDICAL HISTORY : Hypertension. SURGICAL HISTORY : None. ENCOUNTER: Initial ACUITY: 1 day PAIN SCALE: 0/10 LOCATION: cranial TECHNIQUE: Multiple contiguous axial images were obtained of the head. Using automated exposure control and adj ustment of the mA and/or kV according to patient size, radiation dose was kept as low as reasonably a chievable to obtain optimal diagnostic quality images. DICOM format image data is available electro nically for review and comparison. FINDINGS: CEREBRUM: The ventricles are normal for age. No evidence of midline shift, mass lesion, hemorrhage or acute in farction. No extra-axial fluid collections are seen. POSTERIOR FOSSA: The cerebellum and brainstem are intact. The 4th ventricle is midline. The cerebellopontine angle i s unremarkable. EXTRACRANIAL: The visualized portion of the orbits is intact. SKULL: The calvaria is intact. No evidence of skull fracture. CONCLUSION: Normal examination. The right mastoid air cells are hypoplastic Taurus Ontiveros MD on August 01, 2017 at 19:23 Board Certified Radiologist. This report was verified electronically.
[2017-08-01] MEDS ORDERED: HALOPERIDOL 5 MG TAB PO ONE (20:15)
[2017-08-01] MEDS ORDERED: LORazepam 2 MG TAB PO ONE (20:15)
[2017-08-01 20:43] LABS: AUTOMATED NEUTROPHIL # 11.2 TH/MM3 (1.8-7.7); BASOPHIL # 0.1 TH/MM3 (0-0.2); BASOPHIL % 0.4 % (0.0-2.0); EOSINOPHIL % 0.1 % (0.0-4.0); HEMATOCRIT 39.5 % (39.0-51.0); HEMOGLOBIN 13.3 GM/DL (13.0-17.0); LYMPH % 16.7 % (9.0-44.0); LYMPHOCYTE # 2.5 TH/MM3 (1.0-4.8); MEAN CELL VOLUME 88.9 FL (80.0-100.0); MEAN CORPUSCULAR HGB CONC 33.8 % (32.0-36.0); MONO % 8.2 % (0.0-8.0); MONOCYTE # 1.2 TH/MM3 (0-0.9); NEUT % 74.6 % (16.0-70.0); PLATELET COUNT 188 TH/MM3 (150-450); RED BLOOD COUNT 4.44 MIL/MM3 (4.50-5.90); RED CELL DISTRIBUTION WIDTH 13.5 % (11.6-17.2)
[2017-08-01 20:58] LABS: AMORPHOUS SEDIMENT, URINE RARE; BILIRUBIN, URINE NEG (NEG); BLOOD, URINE TRACE (NEG); GLUCOSE,URINE NEG (NEG); HYALINE CAST, URINE 4 /lpf (RARE); KETONE, URINE TRACE mg/dL (NEG); MUCUS URINE FEW /lpf (OCC); NITRITE,URINE NEG (NEG); PH, URINE 5.5 (5.0-8.5); URINE COLOR YELLOW (YELLW/STRAW); URINE LEUKOCYTE ESTERASE NEG (NEG)
[2017-08-01 21:01] LABS: INTERNATIONAL NORMALIZED RATIO 1.1 RATIO; PROTHROMBIN TIME - PATIENT 10.8 SEC (9.8-11.6)
[2017-08-01 21:03] LABS: ALBUMIN 4.2 GM/DL (3.4-5.0); AST (GOT) 48 U/L (15-37); BLOOD UREA NITROGEN 35 MG/DL (7-18); CHLORIDE 97 MEQ/L (98-107); CREATININE 2.64 MG/DL (0.60-1.30); GLOMERULAR FILTRATION RATE 25 ML/MIN (>89); GLUCOSE,RANDOM 108 MG/DL (74-106); MAGNESIUM 2.5 MG/DL (1.5-2.5); SODIUM (NA) 129 MEQ/L (136-145)
[2017-08-01 21:14] LABS: ALKALINE PHOSPHATASE 76 U/L (45-117); ALT (GPT) 52 U/L (12-78); C-REACTIVE PROTEIN 0.73 MG/DL (0.00-0.30); TOTAL BILIRUBIN ADULT 0.6 MG/DL (0.2-1.0); TOTAL PROTEIN 7.8 GM/DL (6.4-8.2); TROPONIN I 0.02 NG/ML (0.02-0.05)
[2017-08-01 21:20] LABS: ACETAMINOPHEN LESS THAN 2.0 MCG/ML (10.0-30.0)
[2017-08-01 22:35] VITALS: O2SAT 97
[2017-08-01 22:36] VITALS: BP 193/91; PULSE 84; RESP 16; TEMP 98.8; O2SAT 96
[2017-08-01] MEDS ORDERED: ACYCLOVIR INJ 1,050 MG in SODIUM CHLORIDE 0.9% INJ 150 ML IV ONE (22:45)
[2017-08-01] MEDS ORDERED: valACYclovir HCL 500 MG TAB PO ONE (23:15)
[2017-08-02 01:10] VITALS: BP 159/71; PULSE 57; RESP 16; O2SAT 98
[2017-08-02 01:45] VITALS: BP 160/74; PULSE 89; RESP 18; TEMP 98.4
[2017-08-02] MEDS ORDERED: LORazepam 1 MG TAB PO PRN (02:30)
[2017-08-02] MEDS ORDERED: diphenhydrAMINE HCL 50 MG CAP PO PRN (02:30)
[2017-08-02] MEDS ORDERED: diphenhydrAMINE HCL 50 MG CAP - HS PRN PO (02:30)
[2017-08-02] MEDS ORDERED: MAGNESIUM HYDROXIDE SUSP 30 ML CUP PO PRN (02:30)
[2017-08-02] MEDS ORDERED: diphenhydrAMINE HCL 50 MG/ML VIAL - HS PRN IM (02:30)
[2017-08-02] MEDS ORDERED: ALUMINUM/MAGNESIUM/SIMETH 30 ML CUP PO PRN (02:30)
[2017-08-02] MEDS ORDERED: LORazepam 2 MG/ML VIAL IM PRN (02:30)
[2017-08-02] MEDS ORDERED: BENZTROPINE MESYLATE 2 MG/2 ML VIAL IM PRN (02:30)
[2017-08-02] MEDS ORDERED: traZODone HCL 50 MG TAB PO PRN (02:30)
[2017-08-02] MEDS ORDERED: BENZTROPINE MESYLATE 1 MG TAB PO PRN (02:30)
[2017-08-02] MEDS: NICOTINE 21 MG/24 HR PATCH T-DERMAL SCH (09:19)
[2017-08-02 09:44] LABS: AUTOMATED NEUTROPHIL # 8.1 TH/MM3 (1.8-7.7); BASOPHIL # 0.1 TH/MM3 (0-0.2); BASOPHIL % 0.7 % (0.0-2.0); EOSINOPHIL % 0.1 % (0.0-4.0); HEMATOCRIT 37.7 % (39.0-51.0); HEMOGLOBIN 12.9 GM/DL (13.0-17.0); LYMPH % 21.9 % (9.0-44.0); LYMPHOCYTE # 2.7 TH/MM3 (1.0-4.8); MEAN CELL VOLUME 89.5 FL (80.0-100.0); MEAN CORPUSCULAR HEMOGLOBIN 30.7 PG (27.0-34.0); MEAN CORPUSCULAR HGB CONC 34.3 % (32.0-36.0); MEAN PLATELET VOLUME 9.9 FL (7.0-11.0); MONO % 11.5 % (0.0-8.0); MONOCYTE # 1.4 TH/MM3 (0-0.9); NEUT % 65.8 % (16.0-70.0); PLATELET COUNT 186 TH/MM3 (150-450); RED BLOOD COUNT 4.22 MIL/MM3 (4.50-5.90); RED CELL DISTRIBUTION WIDTH 13.5 % (11.6-17.2); WHITE BLOOD COUNT 12.3 TH/MM3 (4.0-11.0)
--- NOTE | 2017-08-02 11:25 | PD.CONS ---
HPI Service [facility] Hospitalists Consult Requested By Dr. Trujillo Reason for Consult Opinion recommendation of patient's elevated WBC. Primary Care Physician Unknown Diagnoses: History of Present Illness 57-year-old white male was recently admitted to psychiatric unit for Fu act initiated and sent to the [place] emergency room from [place] [facility]. He is a poor historian and cannot tell me exactly why he is here. He states that he is on chronic morphine and baclofen pump for his chronic back pain and RSD. He even tells me he takes by mouth morphine and baclofen as well but cannot tell me the dosage was very vague in answering my questions. He states that he gets his medications from [facility] in [place] on [facility]. He states that he denies any IV drug use. He states that he smokes about half pack of cigarette per day does not drink alcohol. He does go see a pain specialist refills on his baclofen and morphine pump was seen 3 weeks ago. He states started past 2 weeks he has felt generalized fatigue joint pains and muscle aches. He denies any significant fevers or chills. He has not had any upper respiratory symptoms of runny nose or coughing or sore throat. He denies any abdominal pain with diarrhea nor any nausea or vomiting. He has had decreased appetite. He states due to his chronic pain usually ambulates with a cane. When asked how he sustained abrasions on his left forehead, he tells me he does not know. Review of Systems ROS Limitations: Poor Historian Constitutional: COMPLAINS OF: Fatigue, Change in appetite, DENIES: Fever, Chills Endocrine: DENIES: Heat/cold intolerance Eyes: DENIES: Blurred vision, Eye pain, Vision loss Ears, nose, mouth, throat: DENIES: Hearing loss, Nasal discharge, Throat pain, Ear Pain, Sinus Pain Respiratory: DENIES: Cough, Shortness of breath Cardiovascular: DENIES: Chest pain, Palpitations, Dyspnea on Exertion, Lower Extremity Edema Gastrointestinal: DENIES: Abdominal pain, Black stools, Bloody stools, Constipation, Diarrhea, Nausea, Vomiting Musculoskeletal: COMPLAINS OF: Joint pain, Muscle aches, Stiffness, Back pain Integumentary: DENIES: Rash Hematologic/lymphatic: DENIES: Bruising, Lymphadenopathy Immunologic/allergic: DENIES: Eczema Neurologic: DENIES: Headache, Localized weakness, Paresthesias Psychiatric: DENIES: Anxiety, Confusion, Depression, Suicidal Ideation Past Family Social History Allergies: Coded Allergies: No Known Allergies (Verified Adverse Reaction, Unknown, 08/01/17) Past Medical History Hypertension Chronic back pain RSD Likely history of chronic and disease stage III Past Surgical History Pain pump placed Reported Medications Oxycodone (Oxycodone HCl) 15 Mg Tab 15 Mg PO TID Midodrine 2.5 Mg Tab 2.5 Mg PO TID Cymbalta DR (Duloxetine HCl) 60 Mg Capdr 120 Mg PO DAILY Gabapentin 300 Mg Cap 300 Mg PO BID Gabapentin 100 Mg Cap 100 Mg PO BID Nifedipine ER 24 HR (Nifedipine) 60 Mg Tab 60 Mg PO DAILY Baclofen 10 Mg Tab 10 Mg PO QID PRN Omeprazole 20 Mg Tab 20 Mg PO DAILY Amlodipine (Amlodipine Besylate) 5 Mg Tab 5 Mg PO DAILY Pindolol 5 Mg Tab 5 Mg PO Q12HR Family History None per patient Social History Smokes half pack of cigarettes takes chronic pain medication and has a chronic pain pump, denies history of IV drug or recreational use Physical Exam Vital Signs Vital Signs Date Time Temp Pulse Resp B/P (MAP) Pulse Ox O2 Delivery O2 Flow Rate FiO2 08/02/17 01:45 98.4 89 18 160/74 (102) 08/02/17 01:10 57 16 159/71 (100) 98 Room Air 08/01/17 22:36 98.8 84 16 193/91 (125) 96 Room Air 08/01/17 22:35 97 Room Air 08/01/17 17:57 98.1 98 18 169/73 (105) 96 Physical Exam GENERAL: This is a well-nourished, well-developed patient, in no apparent distress. SKIN: Left forehead abrasions, on the right dorsum hand a darkened area with no open lesions. Cool and dry. HEAD: Atraumatic. Normocephalic. No temporal or scalp tenderness. EYES: Pupils equal round and reactive. Extraocular motions intact. No scleral icterus. No injection or drainage. ENT: Nose without bleeding, purulent drainage or septal hematoma. Throat without erythema, tonsillar hypertrophy or exudate. Uvula midline. Airway patent. NECK: Trachea midline. No JVD or lymphadenopathy. Supple, nontender, no meningeal signs. CARDIOVASCULAR: Regular rate and rhythm without murmurs, gallops, or rubs. RESPIRATORY: Clear to auscultation. Breath sounds equal bilaterally. No wheezes , rales, or rhonchi. GASTROINTESTINAL: Abdomen soft, non-tender, nondistended. Normoactive bowel sounds MUSCULOSKELETAL: Extremities without clubbing, cyanosis, or edema. No joint tenderness, effusion, or edema noted. No calf tenderness. Negative Homans sign bilaterally. NEUROLOGICAL: Awake and alert to person place and time. Cranial nerves II through XII intact. Motor and sensory grossly within normal limits. Five out of 5 muscle strength in all muscle groups. Normal speech. Laboratory Laboratory Tests Test 08/01/17 20:15 08/01/17 20:35 08/02/17 09:36 White Blood Count 15.0 12.3 Red Blood Count 4.44 4.22 Hemoglobin 13.3 12.9 Hematocrit 39.5 37.7 Mean Corpuscular Volume 88.9 89.5 Mean Corpuscular Hemoglobin 30.0 30.7 Mean Corpuscular Hemoglobin Concent 33.8 34.3 Red Cell Distribution Width 13.5 13.5 Platelet Count 188 186 Mean Platelet Volume 10.0 9.9 Neutrophils (%) (Auto) 74.6 65.8 Lymphocytes (%) (Auto) 16.7 21.9 Monocytes (%) (Auto) 8.2 11.5 Eosinophils (%) (Auto) 0.1 0.1 Basophils (%) (Auto) 0.4 0.7 Neutrophils # (Auto) 11.2 8.1 Lymphocytes # (Auto) 2.5 2.7 Monocytes # (Auto) 1.2 1.4 Eosinophils # (Auto) 0.0 0.0 Basophils # (Auto) 0.1 0.1 CBC Comment DIFF FINAL DIFF FINAL Differential Comment Prothrombin Time 10.8 Prothromb Time International Ratio 1.1 Activated Partial Thromboplast Time 26.4 Blood Urea Nitrogen 35 Creatinine 2.64 Random Glucose 108 Total Protein 7.8 Albumin 4.2 Calcium Level 10.0 Magnesium Level 2.5 Alkaline Phosphatase 76 Aspartate Amino Transf (AST/SGOT) 48 Alanine Aminotransferase (ALT/SGPT) 52 Total Bilirubin 0.6 Sodium Level 129 Potassium Level 4.2 Chloride Level 97 Carbon Dioxide Level 23.0 Anion Gap 9 Estimat Glomerular Filtration Rate 25 Total Creatine Kinase 588 Creatine Kinase MB 12.8 Creatine Kinase MB % 2.2 Troponin I 0.02 C-Reactive Protein 0.73 Thyroid Stimulating Hormone 3rd Gen 0.439 Salicylates Level 7.3 Acetaminophen Level LESS THAN 2.0 Ethyl Alcohol Level 4 Urine Color YELLOW Urine Turbidity CLEAR Urine pH 5.5 Urine Specific [place] 1.007 Urine Protein NEG Urine Glucose (UA) NEG Urine Ketones TRACE Urine Occult Blood TRACE Urine Nitrite NEG Urine Bilirubin NEG Urine Urobilinogen LESS THAN 2.0 Urine Leukocyte Esterase NEG Urine RBC 1 Urine WBC LESS THAN 1 Urine Amorphous Sediment RARE Urine Hyaline Casts 4 Urine Mucus FEW Microscopic Urinalysis Comment CULT NOT INDICATED Urine Opiates Screen POS Urine Barbiturates Screen NEG Urine Amphetamines Screen NEG Urine Benzodiazepines Screen NEG Urine Cocaine Screen NEG Urine Cannabinoids Screen NEG Date/Time Source Procedure Growth Status 08/01/17 20:15 Blood Peripheral Aerobic Blood Culture Pending Received 08/01/17 20:15 Blood Peripheral Anaerobic Blood Culture Pending Received Result Diagram: 08/02/17 0936 08/01/172014 Imaging Last Impressions Head CT 08/01/178 Signed Impressions: Service Date/Time: Tuesday, August 01, 2017 19:01 - CONCLUSION: Normal examination. The right mastoid air cells are hypoplastic Taurus Ontiveros MD Chest X-Ray 08/01/171807 Signed Impressions: Service Date/Time: Tuesday, August 01, 2017 18:17 - CONCLUSION: Normal examination. Taurus Ontiveros MD Assessment and Plan Assessment and Plan 1. Adjustment disorder status post Fu act-treatment per psychiatry, and is not known if his chronic pain medication use is contributing to this. It is unknown if patient is taking his chronic pain medication as directed. Safe and appropriate use of opiates discussed with the patient today 2. History of hypertension-resume home Norvasc dose 3. History of chronic back pain- patient has a active morphine pain and baclofen pump - follow-up with pain management. Patient seems to be comfortable at this point with no active complaints of pain. No additional oral narcotics be given at this time. 4. Leukocytosis -no signs of active infection with evaluation. Will repeat another CBC and lactic acid. Blood culture done emergency room currently pending. This may be due to stress reaction versus underlying virus as patient did have worsening of joint pains and muscle aches. No signs of fever overnight. We'll continue monitor patient clinically. 5. Likely underlying chronic kidney disease stage 3 with current acute exacerbation possibly due to poor oral intake and medications - decrease home gabapentin dose, monitor BUN/creatinine, encourage oral intake and avoid nephrotoxins. Thank you for this consultation. Wandy Gomez MD Aug 02, 2017 11:25
[2017-08-02] MEDS ORDERED: PILL SPLITTER OTHER PRN (12:15)
--- NOTE | 2017-08-02 12:44 | HHI.HP ---
Provisional Diagnosis Admission Date Aug 01, 2017 at 23:26 [place] I. Unspecified psychosis, breast psychotic episode, rule out delirium due to substance withdrawal, post ictal psychosis, history of depression [place] II. Deferred [place] III. Hypertension, seizures, chronic back pain, spinal cord injury [place] IV. History of previous psychotic episodes [place] V. 40 Certification of Person's Competence To Provide Express and Informed Consent I have personally examined Tanmay Red , a person being served at [facility] on, Aug 02, 2017 12:19. Express and informed consent means consent voluntarily given in writing, by a competent person, after sufficient explanation and disclosure of the subject matter involved to enable the person to make a knowing and willful decision without any element of force, fraud, deceit, duress, or other form of constraint or coercion. This person is 18 years of age or older, is not now known to be incompetent to consent to treatment with a guardian advocate, and does not have a health care surrogate or proxy currently making medical treatment decisions. I have found this person to be one of the following: [] Competent to provide express and informed consent, as defined above, for voluntary admission to this facility and is competent to provide express and informed consent for treatment. He/she has the consistent capacity to make well reasoned, willful, and knowing decisions concerning his or her medical or mental health treatment. The person fully and consistently understands the purpose of the admission for examination/placement and is fully capable of personally exercising all rights assured under [place] Incompetent to provide express and informed consent to voluntary admission, and this is incompetent to provide express and informed consent to treatment. The person must be transferred to involuntary status and a petition for a guardian advocate filed with the Circuit Court. [x] Refusing to provide express and informed consent to voluntary admission but is competent to provide express and informed consent for treatment. The person must be discharged or transferred to involuntary status. Form shall be completed within 24 hours of a person's arrival at the receiving facility and filed in the clinical record of each person: 1. Admitted on a voluntary basis 2. Permitted to provide express and informed consent to his/her own treatment 3. Allowed to transfer from involuntary to voluntary status 4. Prior to permitting a person to consent to his or her own treatment after having been previously found incompetent to consent to treatment. History of Present Illness Capacity: Has Capacity HPI The patient is a 57-year-old white man, domicile with his in [place], unemployed, supported by [facility], with psychiatric history of depression, psychotic episodes, 1 previous psychiatric hospitalization here at [facility] in the summer of 2016, he was under the care of Dr. Glover, documentation review, he has an established outpatient care with Dr. Florez in [place], he is on duloxetine 120 mg daily, no previous suicidal attempts, medical history of spinal cord injury, chronic back pain, hypertension, seizures, who was brought on the [facility] due to psychotic behavior at home. Per ER documentation : He is a poor historian and cannot tell me exactly why he is here. He states that he is on chronic morphine and baclofen pump for his chronic back pain and RSD. He even tells me he takes by mouth morphine and baclofen as well but cannot tell me the dosage was very vague in answering my questions. He states that he gets his medications from [facility] in [place] on [facility]. He states that he denies any IV drug use. He states that he smokes about half pack of cigarette per day does not drink alcohol. He does go see a pain specialist refills on his baclofen and morphine pump was seen 3 weeks ago. He states started past 2 weeks he has felt generalized fatigue joint pains and muscle aches. He denies any significant fevers or chills. He has not had any upper respiratory symptoms of runny nose or coughing or sore throat. He denies any abdominal pain with diarrhea nor any nausea or vomiting. He has had decreased appetite. He states due to his chronic pain usually ambulates with a cane. When asked how he sustained abrasions on his left forehead, he tells me he does not know. Patient was seen today for psychiatric evaluation. Case was widely discussed with nurse in charge and also with her counselor Sara. Collateral information from patient's was obtained. On psychiatric evaluation today the patient is resistant, oppositional and very irritable. Patient says that he does not know the reason he is in the hospital. He says that his sent him here without no reason. The patient is fully oriented 3. He says that he has medical problems, including back pain and he needs his medications. The patient denies depressive symptoms, he says that he enjoys life, he denies suicidal and homicidal ideation, he denies visual and auditory hallucinations. Patient is logical, coherent and relevant. When I tried to confront him about the reason of his hospitalization and documented information in the Fu acted patient says that he doesn't want to talk about it and it should call his . He denies the use of alcohol and illicit drugs. He denies abusing or overtaking his pain medications. Appetite are from his Rhoda Red at [phone] , was obtained. She says that yesterday she noted that her was taking extra time in the bathroom and she went to knot the door. She found the patient wandering, very disorganized, he acting very bizarre, and is stating that "I know is Marbin, I know is Marbin". She says that she tried to reorient the patient but he continued to make persistently samaritan statements would not answer any of her questions. Moments later he became agitated, no aggressive she clarifies, she called the ambulance and he became more agitated with them. She says that this is not the first time that the patient has a similar psychotic episode, in the past he was taken to the hospital for having a similar presentation but they found that he had an infection. She suspects that the patient probably could be missed using or abusing some of his medications, but she doesn't know the details of the medication that he is taking. Review of Systems Constitutional: DENIES: Diaphoretic episodes, Fatigue, Fever, Weight gain, Weight loss, Chills, Dizziness, Change in appetite, Night Sweats Endocrine: DENIES: Heat/cold intolerance, Polydipsia, Polyuria, Polyphagia Eyes: DENIES: Blurred vision, Diplopia, Eye inflammation, Eye pain, Vision loss , Photosensitivity, Double Vision Ears, nose, mouth, throat: DENIES: Tinnitus, Hearing loss, Vertigo, Nasal discharge, Oral lesions, Throat pain, Hoarseness, Ear Pain, Running Nose, Epistaxis, Sinus Pain, Toothache, Odynophagia Respiratory: DENIES: Apneas, Cough, Snoring, Wheezing, Hemoptysis, Sputum production, Shortness of breath Cardiovascular: DENIES: Chest pain, Palpitations, Syncope, Dyspnea on Exertion , PND, Lower Extremity Edema, Orthopnea, Claudication Gastrointestinal: DENIES: Abdominal pain, Black stools, Bloody stools, Constipation, Diarrhea, Nausea, Vomiting, Difficulty Swallowing, Anorexia Genitourinary: DENIES: Sexual dysfunction, Urinary frequency, Urinary incontinence, Urgency, Hematuria, Dysuria, Nocturia, Penile Discharge, Testicular Pain, Testicular Swelling Musculoskeletal: DENIES: Joint pain, Muscle aches, Stiffness, Joint Swelling, Back pain, Neck pain Integumentary: DENIES: Abnormal pigmentation, Nail changes, Pruritus, Rash Hematologic/lymphatic: DENIES: Bruising, Lymphadenopathy Immunologic/allergic: DENIES: Eczema, Urticaria Neurologic: DENIES: Abnormal gait, Headache, Localized weakness, Paresthesias, Seizures, Speech Problems, Tremor, Poor Balance Psychiatric: COMPLAINS OF: Agitation, Delusions, DENIES: Anxiety, Confusion, Mood changes, Depression, Hallucinations, Suicidal Ideation, Homicidal Ideation Substance Abuse History Drugs/Alcohol past 12 months Patient denies the use of alcohol and illicit drugs Past Family Social History Coded Allergies: No Known Allergies (Verified Adverse Reaction, Unknown, 08/01/17) Active Scripts Levetiracetam (Keppra) 500 Mg Tab, 500 MG PO Q12HR for Control Seizures, #60 TAB Prov:Marco Antonio Parkinson MD 01/12/17 Reported Medications Oxycodone (Oxycodone) 15 Mg Tab, 15 MG PO TID for Pain Management, TAB 0 Refills 08/01/17 Midodrine (Midodrine) 2.5 Mg Tab, 2.5 MG PO TID for Control Low Blood Pressure, #90 TAB 0 Refills 01/09/17 Duloxetine (Cymbalta ) 60 Mg Capdr, 120 MG PO DAILY, #30 CAP 0 Refills 01/09/17 Gabapentin (Gabapentin) 300 Mg Cap, 300 MG PO BID, #60 CAP 0 Refills 01/09/17 Gabapentin (Gabapentin) 100 Mg Cap, 100 MG PO BID, #60 CAP 0 Refills 01/09/17 Nifedipine ER 24 HR (Nifedipine ER 24 HR) 60 Mg Tab, 60 MG PO DAILY, #30 TAB 0 Refills 01/09/17 Baclofen (Baclofen) 10 Mg Tab, 10 MG PO QID Y for MUSCLE SPASM, TAB 0 Refills 01/09/17 Omeprazole (Omeprazole) 20 Mg Tab, 20 MG PO DAILY, #30 TAB 0 Refills 01/09/17 Amlodipine (Amlodipine) 5 Mg Tab, 5 MG PO DAILY for Blood Pressure Management, # 30 TAB 0 Refills 01/09/17 Pindolol (Pindolol) 5 Mg Tab, 5 MG PO Q12HR for Blood Pressure Management, #60 TAB 0 Refills 01/09/17 Discontinued Reported Medications Morphine ER (Morphine ER) 60 Mg Tab, 60 MG PO Q8H for Pain Management, TAB 0 Refills 01/09/17 Lorazepam (Ativan) 2 Mg Tab, 2 MG PO Q8H Y for ANXIETY AND/OR AGITATION, TAB 0 Refills take only half a pill three times a day as needed 01/09/17 Current Medications Medications (Trade) Dose Ordered Sig/Carmen Route Start Time Stop Time Status Last Admin (Ativan) 1 mg Q6H PRN PO 08/02/17 02:30 (Ativan Inj) 1 mg Q6H PRN IM 08/02/17 02:30 (Atarax) 50 mg Q6H PRN PO 08/02/17 02:30 (Benadryl) 50 mg Q6H PRN PO 08/02/17 02:30 (Benadryl Inj) 50 mg Q6H PRN IM 08/02/17 02:30 (Cogentin) 1 mg Q12H PRN PO 08/02/17 02:30 (Cogentin Inj) 1 mg Q12H PRN IM 08/02/17 02:30 (Benadryl) 50 mg HS PRN PO 08/02/17 02:30 (Benadryl Inj) 50 mg HS PRN IM 08/02/17 02:30 (Desyrel) 50 mg HS PRN PO 08/02/17 02:30 (Tylenol) 650 mg Q4H PRN PO 08/02/17 02:30 (Milk Of Magnesia Liq) 30 ml DAILY PRN PO 08/02/17 02:30 (Mag-Al Plus Susp Liq) 30 ml Q6H PRN PO 08/02/17 02:30 (Habitrol 21 Mg Patch.24 Hr) 1 patch DAILY T-DERMAL 08/02/17 09:00 Miscellaneous Information 1 HS T-DERMAL 08/02/17 21:00 (Norvasc) 5 mg DAILY PO 08/03/17 09:00 (Neurontin) 100 mg BID PO 08/02/17 21:00 (Keppra) 500 mg Q12HR PO 08/02/17 21:00 (Visken) 5 mg Q12HR PO 08/02/17 21:00 UNV (Lioresal) 10 mg QID PRN PO 08/02/17 12:15 (Cymbalta Dr) 120 mg DAILY PO 08/02/17 12:15 (Proamatine) 2.5 mg TID PO 08/02/17 13:00 (Pill Splitter) 1 ea UNSCH PRN OTHER 08/02/17 12:15 Family Psych History No family psychiatric history Social History The patient was born and raised in [place], he lives in [place] with his , unemployed, on SSI, his highest level of education is high school Patient's Strengths (min. 2) Family support, an established outpatient psychiatric care Physical Exam No tremors, no EPS, no seizure like activity noted Vital Signs Vital Signs Date Time Temp Pulse Resp B/P (MAP) Pulse Ox O2 Delivery O2 Flow Rate FiO2 08/02/17 01:45 98.4 89 18 160/74 (102) 08/02/17 01:10 98 Room Air I/O 08/02/17 08/02/17 08/03/17 08:00 16:00 00:00 Intake Total 0 ml Balance 0 ml Lab Results Test 08/01/17 20:15 08/01/17 20:35 08/02/17 09:36 White Blood Count 15.0 TH/MM3 12.3 TH/MM3 Red Blood Count 4.44 MIL/MM3 4.22 MIL/MM3 Hemoglobin 13.3 GM/DL 12.9 GM/DL Hematocrit 39.5 % 37.7 % Mean Corpuscular Volume 88.9 FL 89.5 FL Mean Corpuscular Hemoglobin 30.0 PG 30.7 PG Mean Corpuscular Hemoglobin Concent 33.8 % 34.3 % Red Cell Distribution Width 13.5 % 13.5 % Platelet Count 188 TH/MM3 186 TH/MM3 Mean Platelet Volume 10.0 FL 9.9 FL Neutrophils (%) (Auto) 74.6 % 65.8 % Lymphocytes (%) (Auto) 16.7 % 21.9 % Monocytes (%) (Auto) 8.2 % 11.5 % Eosinophils (%) (Auto) 0.1 % 0.1 % Basophils (%) (Auto) 0.4 % 0.7 % Neutrophils # (Auto) 11.2 TH/MM3 8.1 TH/MM3 Lymphocytes # (Auto) 2.5 TH/MM3 2.7 TH/MM3 Monocytes # (Auto) 1.2 TH/MM3 1.4 TH/MM3 Eosinophils # (Auto) 0.0 TH/MM3 0.0 TH/MM3 Basophils # (Auto) 0.1 TH/MM3 0.1 TH/MM3 CBC Comment DIFF FINAL DIFF FINAL Differential Comment Prothrombin Time 10.8 SEC Prothromb Time International Ratio 1.1 RATIO Activated Partial Thromboplast Time 26.4 SEC Blood Urea Nitrogen 35 MG/DL Creatinine 2.64 MG/DL Random Glucose 108 MG/DL Total Protein 7.8 GM/DL Albumin 4.2 GM/DL Calcium Level 10.0 MG/DL Magnesium Level 2.5 MG/DL Alkaline Phosphatase 76 U/L Aspartate Amino Transf (AST/SGOT) 48 U/L Alanine Aminotransferase (ALT/SGPT) 52 U/L Total Bilirubin 0.6 MG/DL Sodium Level 129 MEQ/L Potassium Level 4.2 MEQ/L Chloride Level 97 MEQ/L Carbon Dioxide Level 23.0 MEQ/L Anion Gap 9 MEQ/L Estimat Glomerular Filtration Rate 25 ML/MIN Total Creatine Kinase 588 U/L Creatine Kinase MB 12.8 NG/ML Creatine Kinase MB % 2.2 % Troponin I 0.02 NG/ML C-Reactive Protein 0.73 MG/DL Thyroid Stimulating Hormone 3rd Gen 0.439 uIU/ML Salicylates Level 7.3 MG/DL Acetaminophen Level LESS THAN 2.0 MCG/ML Ethyl Alcohol Level 4 MG/DL Urine Color YELLOW Urine Turbidity CLEAR Urine pH 5.5 Urine Specific [place] 1.007 Urine Protein NEG mg/dL Urine Glucose (UA) NEG mg/dL Urine Ketones TRACE mg/dL Urine Occult Blood TRACE Urine Nitrite NEG Urine Bilirubin NEG Urine Urobilinogen LESS THAN 2.0 MG/DL Urine Leukocyte Esterase NEG Urine RBC 1 /hpf Urine WBC LESS THAN 1 /hpf Urine Amorphous Sediment RARE Urine Hyaline Casts 4 /lpf Urine Mucus FEW /lpf Microscopic Urinalysis Comment CULT NOT INDICATED Urine Opiates Screen POS Urine Barbiturates Screen NEG Urine Amphetamines Screen NEG Urine Benzodiazepines Screen NEG Urine Cocaine Screen NEG Urine Cannabinoids Screen NEG Date/Time Source Procedure Growth Status 08/01/17 20:15 Blood Peripheral Aerobic Blood Culture - Preliminary NO GROWTH IN 1 DAY Resulted 08/01/17 20:15 Blood Peripheral Anaerobic Blood Culture - Preliminary NO GROWTH IN 1 DAY Resulted Mental Status Examination Appearance: Appropriate Consciousness: Alert Orientation: x4 Motor Activity: Normal gait Speech: Unremarkable Language: Adequate Fund of Knowledge: Adequate Attention and Concentration: Adequate Memory: Unremarkable Mood: Angry Affect: Irritable Thought Process & Associations: Intact Thought Content: Bizarre thinking, Preoccupations, Delusional Hallucination Type: None Delusion Type: Paranoid Suicidal Ideation: No Suicidal Plan: No Suicidal Intention: No Homicidal Ideation: No Homicidal Plan: No Homicidal Intention: No Insight: Poor Judgment: Poor Assessment & Plan Problem List: (1) Unspecified psychosis ICD Codes: F29 - Unspecified psychosis not due to a substance or known physiological condition Assessment & Plan: On psychiatric evaluation today the patient is found oppositional, irritable, he seems to be internally preoccupied and paranoid, poorly cooperative with the evaluation. The patient has been reportedly disorganized, religiously preoccupied, not making any sense and agitated. Patient has history of brief psychotic episodes related with underlying medical conditions compensation in the past. Substance withdrawal and post ictal psychosis is also suspected. Patient has psychiatric history of depression that that has been treated with duloxetine [address] Florez in outpatient basis. Patient definitely represents a danger to himself and others due to the level of psychosis at this moment. He needs psychiatric hospitalization for stabilization. Etiology psychosis is still unclear, but substance withdrawal, delirium due to underlying medical conditions, for example underlying infection or metabolic imbalance are high in the differential, but a primary cardiac illness also needs to be carefully explored. I will start the patient in Risperdal 1 mg twice a day psychosis. Will restart medical medications. Consult medicine to address leukocytosis and acute renal failure. Collateral information from Dr. Florez still needed. 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 Assessment & Plan Estimated LOS: Rich Renner MD Aug 02, 2017 12:44
[2017-08-02] MEDS: DULoxetine HCl DR 60 MG CAP PO SCH (13:17)
[2017-08-02] MEDS: risperiDONE 1 MG TAB PO SCH ×2 (13:17→22:02)
[2017-08-02] MEDS: MIDODRINE 5 MG TAB PO SCH ×2 (13:18→17:49)
[2017-08-02 14:09] LABS: CALCIUM 8.9 MG/DL (8.5-10.1); CREATININE 1.62 MG/DL (0.60-1.30)
[2017-08-02 18:00] VITALS: BP_SYST 160; BP_SYST 188; BP_DIAS 74; BP_DIAS 86; PULSE 81; RESP 17; TEMP 97.9; O2SAT 99
--- NOTE | 2017-08-02 18:21 | EKG ---
Date Performed: 08/01/2017 Time Performed: 18:38:56 PTAGE: 57 years EKG: Sinus rhythm WITH SHORT OR INTERVAL BORDERLINE ECG NO PREVIOUS TRACING DOCTOR: Jennifer Metz Interpretating Date/Time 08/02/2017 18:19:26
[2017-08-02] MEDS ORDERED: cloNIDine HCL 0.1 MG TAB PO PRN (18:30)
[2017-08-02] MEDS: REMOVE OLD NICOTINE PATCH T-DERMAL SCH (21:00)
[2017-08-02] MEDS: PINDOLOL 5 MG TAB PO SCH (22:01)
[2017-08-02] MEDS: GABAPENTIN 100 MG CAP PO SCH (22:02)
[2017-08-02] MEDS: levETIRAcetam 500 MG TAB PO SCH (22:02)
[2017-08-02] MEDS: BACLOFEN 10 MG TAB PO PRN (22:04)
[2017-08-03 06:00] VITALS: BP 129/59; PULSE 74; RESP 17; TEMP 97.9; O2SAT 97
[2017-08-03 06:14] LABS: BICARBONATE 26.8 MEQ/L (21.0-32.0); BLOOD UREA NITROGEN 22 MG/DL (7-18); CALCIUM 8.9 MG/DL (8.5-10.1); CHLORIDE 104 MEQ/L (98-107); CREATININE 1.66 MG/DL (0.60-1.30); GLOMERULAR FILTRATION RATE 43 ML/MIN (>89); GLUCOSE,RANDOM 78 MG/DL (74-106); SODIUM (NA) 137 MEQ/L (136-145)
[2017-08-03 06:15] LABS: CHOLESTEROL 193 MG/DL (120-200); TRIGLYCERIDES 113 MG/DL (42-150)
[2017-08-03 06:17] LABS: CHOLESTEROL/ HDL RATIO 3.69 RATIO; HDL CHOLESTEROL 52.3 MG/DL (40.0-60.0); LDL CHOLESTEROL 118 MG/DL (0-99)
--- NOTE | 2017-08-03 10:10 | HHI.PR ---
Subjective Remarks No acute events overnight. Blood pressure 188/86 yesterday evening, 129/59 this morning. Patient with no complaints at this time. Says he has no pain. Objective Vitals Vital Signs Date Time Temp Pulse Resp B/P (MAP) Pulse Ox O2 Delivery O2 Flow Rate FiO2 08/03/17 06:00 97.9 74 17 129/59 (82) 97 08/02/17 18:00 97.9 81 17 188/86 (120) 99 160/74 (102) I/O 08/02/17 08/02/17 08/02/17 08/03/17 08/03/17 08/03/17 07:00 15:00 23:00 07:00 15:00 23:00 Intake Total 0 ml 0 ml Balance 0 ml 0 ml Intake Oral 0 ml 0 ml # Voids 0 Result Diagram: 08/02/17 0936 08/03/17 0435 Objective Remarks GENERAL: male, sitting up in bed SKIN: Left forehead abrasions, on the right dorsum hand a darkened area with no open lesions. Cool and dry. HEAD: Atraumatic. Normocephalic. No temporal or scalp tenderness. EYES: Pupils equal round and reactive. Extraocular motions intact. No scleral icterus. No injection or drainage. ENT: Nose without bleeding, purulent drainage or septal hematoma. Throat without erythema, tonsillar hypertrophy or exudate. Uvula midline. Airway patent. NECK: Trachea midline. No JVD or lymphadenopathy. Supple, nontender, no meningeal signs. CARDIOVASCULAR: Regular rate and rhythm without murmurs, gallops, or rubs. RESPIRATORY: Clear to auscultation. Breath sounds equal bilaterally. No wheezes , rales, or rhonchi. GASTROINTESTINAL: Abdomen soft, non-tender, nondistended. Normoactive bowel sounds MUSCULOSKELETAL: Extremities without clubbing, cyanosis, or edema. No joint tenderness, effusion, or edema noted. No calf tenderness. NEUROLOGICAL: Awake and alert to person place and time. Cranial nerves II through XII intact. Motor and sensory grossly within normal limits. Normal speech. A/P Assessment and Plan 1. Adjustment disorder status post Fu act-treatment per psychiatry, and is not known if his chronic pain medication use is contributing to this. It is unknown if patient is taking his chronic pain medication as directed. 2. History of hypertension-resume home Norvasc dose. Holding Midodrine. PRN Clonidine. 3. History of chronic back pain- patient has a active morphine pain and baclofen pump - follow-up with pain management. Patient seems to be comfortable at this point with no active complaints of pain. No additional oral narcotics be given at this time. 4. Leukocytosis -no signs of active infection with evaluation. Repeat lactic acid 0.6.. Blood culture done emergency room NGx1 day. This may be due to stress reaction versus underlying virus as patient did have worsening of joint pains and muscle aches. Afebrile. Monitor clinically. Repeat CBC in am. 5. Likely underlying chronic kidney disease stage 3 with current acute exacerbation possibly due to poor oral intake and medications - decrease home gabapentin dose, monitor BUN/creatinine, encourage oral intake and avoid nephrotoxins. Cr 1.66 today. Tomeka Alves MD Aug 03, 2017 10:10
[2017-08-03] MEDS: MIDODRINE 5 MG TAB PO SCH (10:22)
[2017-08-03] MEDS: DULoxetine HCl DR 60 MG CAP PO SCH (10:31)
[2017-08-03] MEDS: BACLOFEN 10 MG TAB PO PRN (10:32)
[2017-08-03] MEDS: GABAPENTIN 100 MG CAP PO SCH ×2 (10:32→23:15)
[2017-08-03] MEDS: levETIRAcetam 500 MG TAB PO SCH ×2 (10:32→23:15)
[2017-08-03] MEDS: amLODIPine BESYLATE 5 MG TAB PO SCH (10:32)
[2017-08-03] MEDS: risperiDONE 1 MG TAB PO SCH ×2 (10:32→23:15)
[2017-08-03] MEDS: PINDOLOL 5 MG TAB PO SCH ×2 (10:34→23:15)
[2017-08-03] MEDS: NICOTINE 21 MG/24 HR PATCH T-DERMAL SCH (10:34)
--- NOTE | 2017-08-03 11:14 | HHI.PYPN ---
Subjective Remarks On psychiatric evaluation patient is calm, cooperative, in a good spirit, but episodically confused, disorganized and tangential, but redirectable. The patient reports improved mood, he denies anhedonia, he denies hopelessness, he denies helplessness, patient reports motivation to continue his medications and get better. As per nurse in charge the patient has been disorganized on and off , but no agitation or aggressive behavior reported. I have discussed the case with hospitalist, recommendations appreciated. Patient is oriented 3 at this moment. Compliant with his medications, no significant side effects. Mental Status Examination Appearance: Appropriate Consciousness: Alert Orientation: x4 Motor Activity: Normal gait Speech: Unremarkable Language: Adequate Fund of Knowledge: Adequate Attention and Concentration: Adequate Memory: Unremarkable Mood: Angry Affect: Irritable Thought Process & Associations: Intact Thought Content: Bizarre thinking, Preoccupations, Delusional Hallucination Type: None Delusion Type: Paranoid Suicidal Ideation: No Suicidal Plan: No Suicidal Intention: No Homicidal Ideation: No Homicidal Plan: No Homicidal Intention: No Insight: Fair Judgment: Impulsive Results Labs Test 08/02/17 12:53 08/02/17 13:03 08/03/17 04:35 Blood Urea Nitrogen 25 MG/DL 22 MG/DL Creatinine 1.62 MG/DL 1.66 MG/DL Random Glucose 91 MG/DL 78 MG/DL Calcium Level 8.9 MG/DL 8.9 MG/DL Sodium Level 136 MEQ/L 137 MEQ/L Potassium Level 4.0 MEQ/L 3.7 MEQ/L Chloride Level 102 MEQ/L 104 MEQ/L Carbon Dioxide Level 27.0 MEQ/L 26.8 MEQ/L Anion Gap 7 MEQ/L 6 MEQ/L Estimat Glomerular Filtration Rate 44 ML/MIN 43 ML/MIN Lactic Acid Level 0.6 mmol/L Triglycerides Level 113 MG/DL Cholesterol Level 193 MG/DL LDL Cholesterol 118 MG/DL HDL Cholesterol 52.3 MG/DL Cholesterol/HDL Ratio 3.69 RATIO Date/Time Source Procedure Growth Status 08/01/17 20:15 Blood Peripheral Aerobic Blood Culture - Preliminary NO GROWTH IN 2 DAYS Resulted 08/01/17 20:15 Blood Peripheral Anaerobic Blood Culture - Preliminary NO GROWTH IN 2 DAYS Resulted Vitals/IOs Vital Signs Date Time Temp Pulse Resp B/P (MAP) Pulse Ox O2 Delivery O2 Flow Rate FiO2 08/03/17 06:00 97.9 74 17 129/59 (82) 97 08/02/17 01:10 Room Air Assessment & Plan Problem List: (1) Unspecified psychosis ICD Codes: F29 - Unspecified psychosis not due to a substance or known physiological condition Assessment & Plan: Patient continues to be episodically psychotic, but with less intensity that yesterday. Continue Risperdal 1 mg twice a day. Labs and vital signs reviewed. Assessment & Plan Estimated LOS: days Justification for Cont. Inpt. Patient will continue psychiatric hospitalization for stabilization and safety. Rich Trujillo MD Aug 03, 2017 11:14
[2017-08-03 16:50] VITALS: BP 102/50; PULSE 79; RESP 18; TEMP 97.8; O2SAT 98
[2017-08-03] MEDS: REMOVE OLD NICOTINE PATCH T-DERMAL SCH (21:00)
[2017-08-04] MEDS: ACETAMINOPHEN 325 MG TAB PO PRN ×2 (01:56→09:25)
[2017-08-04] MEDS: diphenhydrAMINE HCL 50 MG/ML VIAL IM PRN ×2 (05:30→06:26)
[2017-08-04] MEDS ORDERED: OLANZapine IM 10 MG VIAL IM ONE ×3 (06:15→18:15)
[2017-08-04 07:02] VITALS: BP 86/57; PULSE 61; RESP 16; TEMP 97.6; O2SAT 97
[2017-08-04] MEDS: levETIRAcetam 500 MG TAB PO SCH ×2 (08:27→21:32)
[2017-08-04] MEDS: DULoxetine HCl DR 60 MG CAP PO SCH (08:27)
[2017-08-04] MEDS: GABAPENTIN 100 MG CAP PO SCH ×2 (08:27→21:33)
[2017-08-04] MEDS: PINDOLOL 5 MG TAB PO SCH ×2 (08:27→21:00)
[2017-08-04] MEDS: BACLOFEN 10 MG TAB PO PRN (08:27)
[2017-08-04] MEDS: amLODIPine BESYLATE 5 MG TAB PO SCH ×2 (08:27→09:00)
[2017-08-04] MEDS: NICOTINE 21 MG/24 HR PATCH T-DERMAL SCH (08:27)
[2017-08-04] MEDS: risperiDONE 1 MG TAB PO SCH ×2 (08:27→09:00)
[2017-08-04] MEDS: hydrOXYzine HCL 50 MG TAB PO PRN (08:30)
--- NOTE | 2017-08-04 08:30 | PD.PSY.CON ---
Provisional Diagnosis Admission Date Aug 01, 2017 at 23:26 [place] I. Unspecified psychosis, breast psychotic episode, rule out delirium due to substance withdrawal, post ictal psychosis, history of depression [place] II. Deferred [place] III. Hypertension, seizures, chronic back pain, spinal cord injury [place] IV. History of previous psychotic episodes [place] V. 40 History of Present Illness Service Psychiatry Consult Requested By Dr. Trujillo Reason for Consult Second opinion Primary Care Physician Unknown HPI The patient is a 57-year-old white man, domicile with his in [place], unemployed, supported by [facility], with psychiatric history of depression, psychotic episodes, 1 previous psychiatric hospitalization here at [facility] in the summer of 2016, he was under the care of Dr. Glover, documentation review, he has an established outpatient care with Dr. Florez in [place], he is on duloxetine 120 mg daily, no previous suicidal attempts, medical history of spinal cord injury, chronic back pain, hypertension, seizures, who was brought on the Fu act from [facility] due to psychotic behavior at home. Per ER documentation : He is a poor historian and cannot tell me exactly why he is here. He states that he is on chronic morphine and baclofen pump for his chronic back pain and RSD. He even tells me he takes by mouth morphine and baclofen as well but cannot tell me the dosage was very vague in answering my questions. He states that he gets his medications from [facility] in [place] on [facility]. He states that he denies any IV drug use. He states that he smokes about half pack of cigarette per day does not drink alcohol. He does go see a pain specialist refills on his baclofen and morphine pump was seen 3 weeks ago. He states started past 2 weeks he has felt generalized fatigue joint pains and muscle aches. He denies any significant fevers or chills. He has not had any upper respiratory symptoms of runny nose or coughing or sore throat. He denies any abdominal pain with diarrhea nor any nausea or vomiting. He has had decreased appetite. He states due to his chronic pain usually ambulates with a cane. When asked how he sustained abrasions on his left forehead, he tells me he does not know. Patient was seen today for psychiatric evaluation. Case was widely discussed with nurse in charge and also with her counselor Sara. Collateral information from patient's was obtained. On psychiatric evaluation today the patient is resistant, oppositional and very irritable. Patient says that he does not know the reason he is in the hospital. He says that his sent him here without no reason. The patient is fully oriented 3. He says that he has medical problems, including back pain and he needs his medications. The patient denies depressive symptoms, he says that he enjoys life, he denies suicidal and homicidal ideation, he denies visual and auditory hallucinations. Patient is logical, coherent and relevant. When I tried to confront him about the reason of his hospitalization and documented information in the Fu acted patient says that he doesn't want to talk about it and it should call his . He denies the use of alcohol and illicit drugs. He denies abusing or overtaking his pain medications. Appetite are from his Rhoda Red at [phone] , was obtained. She says that yesterday she noted that her was taking extra time in the bathroom and she went to knot the door. She found the patient wandering, very disorganized, he acting very bizarre, and is stating that "I know is Marbin, I know is Marbin". She says that she tried to reorient the patient but he continued to make persistently shinto statements would not answer any of her questions. Moments later he became agitated, no aggressive she clarifies, she called the ambulance and he became more agitated with them. She says that this is not the first time that the patient has a similar psychotic episode, in the past he was taken to the hospital for having a similar presentation but they found that he had an infection. She suspects that the patient probably could be missed using or abusing some of his medications, but she doesn't know the details of the medication that he is taking. 08/04/17 - Second opinion Patient is a 57-year-old man, , unemployed on SSI with a past psychiatric history of depression and psychosis, 1 previous psychiatric admission, no previous suicide attempt, with past medical history of spinal cord injury, chronic back pain hypertension and seizure disorder who was admitted to the inpatient psychiatry for psychosis. Discussion with nursing staff reported the patient earlier this morning I become aggressive" díaz- headed be activated due to his aggressive behavior with staff and required a ETO of olanzapine 5 mg IM 1. Patient was found sitting in hospital bed eating breakfast, cooperative but noted to be guarded and hypervigilant. Patient stated he is feeling "okay" continued reporting having back pain, reports having difficult to see last evening, reports his mood has been good denies feeling sad or depressed. Patient is no 3 but unable to recall reasons why he is in the hospital at this time. Patient denies any suicidal homicidal ideations, his denies any perceptual disturbances or delusions. Patient appeared very paranoid with insurance writer and noted to be very guarded. Past Family Social History Coded Allergies: No Known Allergies (Verified Adverse Reaction, Unknown, 08/01/17) Active Scripts Levetiracetam (Keppra) 500 Mg Tab, 500 MG PO Q12HR for Control Seizures, #60 TAB Prov:Marco Antonio Parkinson MD 01/12/17 Reported Medications Oxycodone (Oxycodone) 15 Mg Tab, 15 MG PO TID for Pain Management, TAB 0 Refills 08/01/17 Midodrine (Midodrine) 2.5 Mg Tab, 2.5 MG PO TID for Control Low Blood Pressure, #90 TAB 0 Refills 01/09/[address] (Cymbalta DR) 60 Mg Capdr, 120 MG PO DAILY, #30 CAP 0 Refills 01/09/17 Gabapentin (Gabapentin) 300 Mg Cap, 300 MG PO BID, #60 CAP 0 Refills 01/09/17 Gabapentin (Gabapentin) 100 Mg Cap, 100 MG PO BID, #60 CAP 0 Refills 01/09/17 Nifedipine ER 24 HR (Nifedipine ER 24 HR) 60 Mg Tab, 60 MG PO DAILY, #30 TAB 0 Refills 01/09/17 Baclofen (Baclofen) 10 Mg Tab, 10 MG PO QID Y for MUSCLE SPASM, TAB 0 Refills 01/09/17 Omeprazole (Omeprazole) 20 Mg Tab, 20 MG PO DAILY, #30 TAB 0 Refills 01/09/17 Amlodipine (Amlodipine) 5 Mg Tab, 5 MG PO DAILY for Blood Pressure Management, # 30 TAB 0 Refills 01/09/17 Pindolol (Pindolol) 5 Mg Tab, 5 MG PO Q12HR for Blood Pressure Management, #60 TAB 0 Refills 01/09/17 Discontinued Reported Medications Morphine ER (Morphine ER) 60 Mg Tab, 60 MG PO Q8H for Pain Management, TAB 0 Refills 01/09/17 Lorazepam (Ativan) 2 Mg Tab, 2 MG PO Q8H Y for ANXIETY AND/OR AGITATION, TAB 0 Refills take only half a pill three times a day as needed 01/09/17 Current Medications Medications (Trade) Dose Ordered Sig/Carmen Route Start Time Stop Time Status Last Admin (Atarax) 50 mg Q6H PRN PO 08/02/17 02:30 (Benadryl) 50 mg Q6H PRN PO 08/02/17 02:30 (Benadryl Inj) 50 mg Q6H PRN IM 08/02/17 02:30 08/04/17 05:30 (Cogentin) 1 mg Q12H PRN PO 08/02/17 02:30 (Cogentin Inj) 1 mg Q12H PRN IM 08/02/17 02:30 (Benadryl) 50 mg HS PRN PO 08/02/17 02:30 (Benadryl Inj) 50 mg HS PRN IM 08/02/17 02:30 (Desyrel) 50 mg HS PRN PO 08/02/17 02:30 (Tylenol) 650 mg Q4H PRN PO 08/02/17 02:30 08/04/17 01:56 (Milk Of Magnesia Liq) 30 ml DAILY PRN PO 08/02/17 02:30 (Mag-Al Plus Susp Liq) 30 ml Q6H PRN PO 08/02/17 02:30 (Habitrol 21 Mg Patch.24 Hr) 1 patch DAILY T-DERMAL 08/02/17 09:00 08/03/17 10:34 Miscellaneous Information 1 HS T-DERMAL 08/02/17 21:00 (Norvasc) 5 mg DAILY PO 08/03/17 09:00 08/03/17 10:32 (Neurontin) 100 mg BID PO 08/02/17 21:00 08/03/17 23:15 (Keppra) 500 mg Q12HR PO 08/02/17 21:00 08/03/17 23:15 (Visken) 5 mg Q12HR PO 08/02/17 21:00 08/03/17 23:15 (Lioresal) 10 mg QID PRN PO 08/02/17 12:15 08/03/17 10:32 (Cymbalta Dr) 120 mg DAILY PO 08/02/17 12:15 08/03/17 10:31 (Proamatine) 2.5 mg TID PO 08/02/17 13:00 Future hold (Pill Splitter) 1 ea UNSCH PRN OTHER 08/02/17 12:15 (risperDAL) 1 mg Q12HR PO 08/02/17 12:30 08/03/17 23:15 (Catapres) 0.1 mg Q6H PRN PO 08/02/17 18:30 Patient's Strengths (min. 2) Family support, an established outpatient psychiatric care Physical Exam Vital Signs Vital Signs Date Time Temp Pulse Resp B/P (MAP) Pulse Ox O2 Delivery O2 Flow Rate FiO2 08/04/17 07:02 97.6 61 16 86/57 (67) 97 08/02/17 01:10 Room Air I/O 08/04/17 08/04/17 08/05/17 08:00 16:00 00:00 Intake Total 240 ml Balance 240 ml Lab Results Date/Time Source Procedure Growth Status 08/01/17 20:15 Blood Peripheral Aerobic Blood Culture - Preliminary NO GROWTH IN 2 DAYS Resulted 08/01/17 20:15 Blood Peripheral Anaerobic Blood Culture - Preliminary NO GROWTH IN 2 DAYS Resulted Mental Status Examination Appearance: Appropriate Consciousness: Vigilant Orientation: Person, Place, Date/Time Motor Activity: Normal gait Speech: Unremarkable Language: Adequate Fund of Knowledge: Adequate Attention and Concentration: Adequate Memory: Unremarkable Mood: Angry, Irritable Affect: Irritable, Other (guarded) Thought Process & Associations: Intact, Linear Thought Content: Bizarre thinking, Preoccupations, Delusional Hallucination Type: None Delusion Type: Paranoid Suicidal Ideation: No Suicidal Plan: No Suicidal Intention: No Homicidal Ideation: No Homicidal Plan: No Homicidal Intention: No Insight: Fair Judgment: Impulsive Assessment & Plan Problem List: (1) Unspecified psychosis ICD Codes: F29 - Unspecified psychosis not due to a substance or known physiological condition Assessment & Plan I have seen and examined this patient, reviewed the documentation and I agree and concur with Dr. Trujillo's assessment and plan. Consult appreciated. Patient this time continues to be noted to be very paranoid, hypervigilant, recent aggressive behavior towards staff requiring ETO with activation of "díaz due to his level of aggression. Patient continues to be noted to be psychotic, disorganized although he is alert and oriented 3. Increase risperidone to 1 mg a.m./2 mg at bedtime for psychosis, continue rest of medications. Assault precautions. Continue to monitor mood and behavior. Discharge planning in progress Discharge Planning To return back to his residence 1 psychiatrically stable Dany Lucas MD Aug 04, 2017 08:30
[2017-08-04 08:40] VITALS: BP 110/59; PULSE 83; RESP 16; O2SAT 97
[2017-08-04] MEDS: MIDODRINE 5 MG TAB PO SCH ×3 (09:43→17:33)
[2017-08-04 10:42] LABS: BASOPHIL # 0.1 TH/MM3 (0-0.2); BASOPHIL % 0.7 % (0.0-2.0); EOSINOPHIL % 0.3 % (0.0-4.0); HEMATOCRIT 37.5 % (39.0-51.0); HEMOGLOBIN 13.1 GM/DL (13.0-17.0); LYMPHOCYTE # 1.8 TH/MM3 (1.0-4.8); MEAN CELL VOLUME 90.7 FL (80.0-100.0); MEAN CORPUSCULAR HEMOGLOBIN 31.8 PG (27.0-34.0); MEAN CORPUSCULAR HGB CONC 35.1 % (32.0-36.0); MONO % 9.7 % (0.0-8.0); MONOCYTE # 0.9 TH/MM3 (0-0.9); NEUT % 71.3 % (16.0-70.0); PLATELET COUNT 159 TH/MM3 (150-450); RED BLOOD COUNT 4.13 MIL/MM3 (4.50-5.90); RED CELL DISTRIBUTION WIDTH 13.8 % (11.6-17.2); WHITE BLOOD COUNT 9.7 TH/MM3 (4.0-11.0)
--- NOTE | 2017-08-04 10:59 | HHI.PR ---
Subjective Remarks No acute events overnight. Patient with no complaints at this time. Hypotensive this morning to 86/57. Objective Vitals Vital Signs Date Time Temp Pulse Resp B/P (MAP) Pulse Ox O2 Delivery O2 Flow Rate FiO2 08/04/17 10:31 18 08/04/17 08:40 83 16 110/59 (76) 97 08/04/17 07:02 97.6 61 16 86/57 (67) 97 08/03/17 16:50 97.8 79 18 102/50 (67) 98 I/O 08/03/17 08/03/17 08/03/17 08/04/17 08/04/17 08/04/17 07:00 15:00 23:00 07:00 15:00 23:00 Intake Total 240 ml 240 ml 240 ml Balance 240 ml 240 ml 240 ml Intake Oral 240 ml 240 ml 240 ml Result Diagram: 08/04/17 1010 08/03/17 0435 Objective Remarks GENERAL: male, sitting up in bed SKIN: Left forehead abrasions, on the right dorsum hand a darkened area with no open lesions. Cool and dry. HEAD: Atraumatic. Normocephalic. No temporal or scalp tenderness. EYES: Pupils equal round and reactive. Extraocular motions intact. No scleral icterus. No injection or drainage. ENT: Nose without bleeding, purulent drainage or septal hematoma. Throat without erythema, tonsillar hypertrophy or exudate. Uvula midline. Airway patent. NECK: Trachea midline. No JVD or lymphadenopathy. Supple, nontender, no meningeal signs. CARDIOVASCULAR: Regular rate and rhythm without murmurs, gallops, or rubs. RESPIRATORY: Clear to auscultation. Breath sounds equal bilaterally. No wheezes , rales, or rhonchi. GASTROINTESTINAL: Abdomen soft, non-tender, nondistended. Normoactive bowel sounds MUSCULOSKELETAL: Extremities without clubbing, cyanosis, or edema. No joint tenderness, effusion, or edema noted. No calf tenderness. NEUROLOGICAL: Awake and alert to person place and time. Cranial nerves II through XII intact. Motor and sensory grossly within normal limits. Normal speech. A/P Assessment and Plan 1. Adjustment disorder status post Fu act-treatment per psychiatry, and is not known if his chronic pain medication use is contributing to this. It is unknown if patient is taking his chronic pain medication as directed. 2. History of hypertension-BP remains labile. Resume home Norvasc dose. Resume Midodrine given hypotension. PRN Clonidine. 3. History of chronic back pain- patient has a active morphine pain and baclofen pump - follow-up with pain management. Patient seems to be comfortable at this point with no active complaints of pain. No additional oral narcotics be given at this time. 4. Leukocytosis -Resolved. No signs of active infection with evaluation. Repeat lactic acid 0.6.. Blood culture done emergency room NGx2 day. This may be due to stress reaction versus underlying virus as patient did have worsening of joint pains and muscle aches. Afebrile. Monitor clinically. 5. Likely underlying chronic kidney disease stage 3 with current acute exacerbation possibly due to poor oral intake and medications - decrease home gabapentin dose, monitor BUN/creatinine, encourage oral intake and avoid nephrotoxins. Tomeka Alves MD Aug 04, 2017 10:59
[2017-08-04 11:36] LABS: BICARBONATE 31.3 MEQ/L (21.0-32.0); CALCIUM 9.5 MG/DL (8.5-10.1); CREATININE 2.42 MG/DL (0.60-1.30)
[2017-08-04 17:28] VITALS: BP 116/60; PULSE 68; RESP 18; O2SAT 98
[2017-08-04] MEDS: REMOVE OLD NICOTINE PATCH T-DERMAL SCH (21:00)
[2017-08-04] MEDS ORDERED: risperiDONE 1 MG TAB PO SCH (21:00)
[2017-08-05 06:00] VITALS: BP 145/79; PULSE 71; RESP 16; TEMP 97.9; O2SAT 99
[2017-08-05] MEDS ORDERED: SODIUM CHLOR 0.9% 1000 ML INJ 1,000 ML IV ONE (07:45)
[2017-08-05] MEDS: GABAPENTIN 100 MG CAP PO SCH ×2 (09:59→21:00)
[2017-08-05] MEDS: DULoxetine HCl DR 60 MG CAP PO SCH (09:59)
[2017-08-05] MEDS: risperiDONE 1 MG TAB PO SCH ×2 (10:00→21:00)
[2017-08-05] MEDS: amLODIPine BESYLATE 5 MG TAB PO SCH (10:00)
[2017-08-05] MEDS: levETIRAcetam 500 MG TAB PO SCH ×2 (10:00→21:00)
[2017-08-05] MEDS: MIDODRINE 5 MG TAB PO SCH ×3 (10:00→18:32)
[2017-08-05] MEDS: PINDOLOL 5 MG TAB PO SCH ×2 (10:00→21:00)
[2017-08-05] MEDS: NICOTINE 21 MG/24 HR PATCH T-DERMAL SCH (10:03)
--- NOTE | 2017-08-05 10:20 | HHI.PYPN ---
Subjective Remarks Patient seen for follow-up, chart reviewed. Discussion she staff reported the patient had required restraints yesterday that he had attempted to hit and punch staff which she then required ETO on 2 separate occasions and had put in restraints last evening due to aggressive behavior. Patient was found lying in hospital bed this morning only on one point restraint was calm and cooperative. Patient states that he does not recall events that occurred yesterday but did recall having been visited by his . She continues to be confused and events that brought to the hospital. Patient is alert and oriented 3. Patient agrees to comply with treatment as well as to work with staff. Review of Systems Except as stated in HPI: all other systems reviewed are Neg Mental Status Examination Appearance: Appropriate Consciousness: Vigilant Orientation: Person, Place, Date/Time Motor Activity: Normal gait Speech: Unremarkable Language: Adequate Fund of Knowledge: Adequate Attention and Concentration: Adequate Memory: Unremarkable Mood: Appropriate, Irritable Affect: Blunt Thought Process & Associations: Intact, Linear Thought Content: Bizarre thinking, Preoccupations, Delusional Hallucination Type: None Delusion Type: Paranoid Suicidal Ideation: No Suicidal Plan: No Suicidal Intention: No Homicidal Ideation: No Homicidal Plan: No Homicidal Intention: No Insight: Fair Judgment: Impulsive Results Labs Date/Time Source Procedure Growth Status 08/01/17 20:15 Blood Peripheral Aerobic Blood Culture - Preliminary NO GROWTH IN 3 DAYS Resulted 08/01/17 20:15 Blood Peripheral Anaerobic Blood Culture - Preliminary NO GROWTH IN 3 DAYS Resulted Vitals/IOs Vital Signs Date Time Temp Pulse Resp B/P (MAP) Pulse Ox O2 Delivery O2 Flow Rate FiO2 08/05/17 06:00 97.9 71 16 145/79 (101) 99 08/02/17 01:10 Room Air Intake and Output 08/05/17 08/05/17 08/06/17 08:00 16:00 00:00 Intake Total 0 ml Balance 0 ml Assessment & Plan Problem List: (1) Unspecified psychosis ICD Codes: F29 - Unspecified psychosis not due to a substance or known physiological condition Assessment & Plan Patient at this time continues to have intermittent episodes of agitation and physical aggression toward others and confused at times. We'll increase Risperdal 2 mg by mouth twice a day for mood stabilization. Continue rest of medications, continue recommendations as per primary medical team. Continue with one-to-one observation for safety. Discharge planning in progress Justification for Cont. Inpt. At risk for further decompensation if at lower level of care Discharge Planning To be determined Dany Lucas MD Aug 05, 2017 10:20
[2017-08-05 13:21] LABS: HEMOGLOBIN A1C 5.5 % (4.3-6.0)
--- NOTE | 2017-08-05 14:02 | HHI.PR ---
Subjective Remarks No acute events overnight. Afebrile, vital signs stable. Patient with no complaints at this time. Objective Vitals Vital Signs Date Time Temp Pulse Resp B/P (MAP) Pulse Ox O2 Delivery O2 Flow Rate FiO2 08/05/17 06:00 97.9 71 16 145/79 (101) 99 08/04/17 17:28 68 18 116/60 (78) 98 I/O 08/04/17 08/04/17 08/04/17 08/05/17 08/05/17 08/05/17 07:00 15:00 23:00 07:00 15:00 23:00 Intake Total 480 ml 0 ml 0 ml Balance 480 ml 0 ml 0 ml Intake Oral 480 ml 0 ml 0 ml # Voids 1 3 Result Diagram: 08/04/17 1010 08/04/17 1010 Objective Remarks GENERAL: male, sitting up in bed SKIN: Left forehead abrasions, on the right dorsum hand a darkened area with no open lesions. Cool and dry. HEAD: Atraumatic. Normocephalic. No temporal or scalp tenderness. EYES: Pupils equal round and reactive. Extraocular motions intact. No scleral icterus. No injection or drainage. ENT: Nose without bleeding, purulent drainage or septal hematoma. Throat without erythema, tonsillar hypertrophy or exudate. Uvula midline. Airway patent. NECK: Trachea midline. No JVD or lymphadenopathy. Supple, nontender, no meningeal signs. CARDIOVASCULAR: Regular rate and rhythm without murmurs, gallops, or rubs. RESPIRATORY: Clear to auscultation. Breath sounds equal bilaterally. No wheezes , rales, or rhonchi. GASTROINTESTINAL: Abdomen soft, non-tender, nondistended. Normoactive bowel sounds MUSCULOSKELETAL: Extremities without clubbing, cyanosis, or edema. No joint tenderness, effusion, or edema noted. No calf tenderness. NEUROLOGICAL: Awake and alert to person place and time. Cranial nerves II through XII intact. Motor and sensory grossly within normal limits. Normal speech. A/P Assessment and Plan 1. Adjustment disorder status post Fu act-treatment per psychiatry, and is not known if his chronic pain medication use is contributing to this. It is unknown if patient is taking his chronic pain medication as directed. 2. History of hypertension-BP remains labile. Resume home Norvasc dose. Resume Midodrine given hypotension. PRN Clonidine. 3. History of chronic back pain- patient has a active morphine pain and baclofen pump - follow-up with pain management. Patient seems to be comfortable at this point with no active complaints of pain. No additional oral narcotics be given at this time. 4. Leukocytosis -Resolved. No signs of active infection with evaluation. Repeat lactic acid 0.6.. Blood culture done emergency room NGx2 day. This may be due to stress reaction versus underlying virus as patient did have worsening of joint pains and muscle aches. Afebrile. Monitor clinically. 5. Likely underlying chronic kidney disease stage 3 with current acute exacerbation possibly due to poor oral intake and medications - decrease home gabapentin dose, monitor BUN/creatinine, encourage oral intake and avoid nephrotoxins. 6. ANGELIQUE - patient with a BUN/creatinine of 35/2.42 today. Increased from yesterday. Suspect secondary to poor by mouth intake. Status post 1 L bolus. Encourage by mouth hydration and discussed with nurse. Repeat BMP in the a.tessa. Tomeka Alves MD Aug 05, 2017 14:02
[2017-08-05 18:43] VITALS: BP 115/59; PULSE 80; RESP 17; TEMP 97.9; O2SAT 97
[2017-08-05] MEDS: REMOVE OLD NICOTINE PATCH T-DERMAL SCH (21:00)
[2017-08-06 06:41] VITALS: BP 118/69; PULSE 71; RESP 17; TEMP 97.3
[2017-08-06 08:17] LABS: BICARBONATE 29.5 MEQ/L (21.0-32.0); CALCIUM 8.8 MG/DL (8.5-10.1); CREATININE 1.39 MG/DL (0.60-1.30)
--- NOTE | 2017-08-06 10:45 | HHI.PR ---
Subjective Remarks Patient seen and examined Vitals stable and no acute event overnight Currently normotensive and improving renal indices Objective Vitals Vital Signs Date Time Temp Pulse Resp B/P (MAP) Pulse Ox O2 Delivery O2 Flow Rate FiO2 08/06/17 06:41 97.3 71 17 118/69 (85) 08/05/17 18:43 97.9 80 17 115/59 (77) 97 I/O 08/05/17 08/05/17 08/05/17 08/06/17 08/06/17 08/06/17 07:00 15:00 23:00 07:00 15:00 23:00 Intake Total 0 ml 720 ml 0 ml 600 ml Balance 0 ml 720 ml 0 ml 600 ml Intake Oral 0 ml 720 ml 0 ml 600 ml # Voids 3 2 2 Result Diagram: 08/04/17 1010 08/06/17 0730 Imaging Last Impressions Head CT 08/01/171807 Signed Impressions: Service Date/Time: Tuesday, August 01, 2017 19:01 - CONCLUSION: Normal examination. The right mastoid air cells are hypoplastic Taurus Ontiveros MD Chest X-Ray 08/01/171807 Signed Impressions: Service Date/Time: Tuesday, August 01, 2017 18:17 - CONCLUSION: Normal examination. Taursu Ontiveros MD Objective Remarks GENERAL: NAD SKIN: Warm and dry. HEAD: Normocephalic. EYES: No scleral icterus. No injection or drainage. NECK: Supple, trachea midline. No JVD or lymphadenopathy. CARDIOVASCULAR: Regular rate and rhythm without murmurs, gallops, or rubs. RESPIRATORY: Breath sounds equal bilaterally. No accessory muscle use. GASTROINTESTINAL: Abdomen soft, non-tender, nondistended. MUSCULOSKELETAL: No cyanosis, or edema. BACK: Nontender without obvious deformity. No CVA tenderness. A/P Assessment and Plan 57 year-old man with 1. Adjustment disorder status post Fu act-treatment per psychiatry 2. History of hypertension-currently normotensive on Norvasc 5 mg daily, midodrine 2.5 mg 3 times a day, Pindolol 5mg BID 3. History of chronic back pain- patient has a active morphine pain and baclofen pump - follow-up with pain management. Patient seems to be comfortable at this point with no active complaints of pain. No additional oral narcotics be given at this time. 4. Leukocytosis -Resolved. 5. ANGELIQUE on CKD - resolving with renal indices improving, creatinine 1.39 DVT prophylaxis: Encourage ambulation Patient is medically stable for discharge,[facility] will sign off. Reconsult when necessary Dany Read MD Aug 06, 2017 10:45
[2017-08-06] MEDS: amLODIPine BESYLATE 5 MG TAB PO SCH (11:06)
[2017-08-06] MEDS: levETIRAcetam 500 MG TAB PO SCH ×2 (11:06→20:54)
[2017-08-06] MEDS: MIDODRINE 5 MG TAB PO SCH ×3 (11:06→18:44)
[2017-08-06] MEDS: GABAPENTIN 100 MG CAP PO SCH ×2 (11:06→20:54)
[2017-08-06] MEDS: PINDOLOL 5 MG TAB PO SCH ×2 (11:06→20:54)
[2017-08-06] MEDS: risperiDONE 1 MG TAB PO SCH ×2 (11:07→20:54)
[2017-08-06] MEDS: NICOTINE 21 MG/24 HR PATCH T-DERMAL SCH (11:07)
[2017-08-06] MEDS: DULoxetine HCl DR 60 MG CAP PO SCH (11:07)
[2017-08-06 18:00] VITALS: BP 97/62; PULSE 90; RESP 18; TEMP 98.6; O2SAT 97
[2017-08-06] MEDS: REMOVE OLD NICOTINE PATCH T-DERMAL SCH (20:55)
[2017-08-07 05:48] VITALS: BP 121/60; PULSE 70; RESP 20; TEMP 97.2; O2SAT 96
[2017-08-07] MEDS: amLODIPine BESYLATE 5 MG TAB PO SCH (08:51)
[2017-08-07] MEDS: levETIRAcetam 500 MG TAB PO SCH ×2 (08:51→21:00)
[2017-08-07] MEDS: risperiDONE 1 MG TAB PO SCH ×2 (08:52→21:00)
[2017-08-07] MEDS: DULoxetine HCl DR 60 MG CAP PO SCH (08:52)
[2017-08-07] MEDS: PINDOLOL 5 MG TAB PO SCH ×2 (08:53→21:00)
[2017-08-07] MEDS: GABAPENTIN 100 MG CAP PO SCH ×2 (08:53→21:00)
[2017-08-07] MEDS: MIDODRINE 5 MG TAB PO SCH ×3 (08:54→18:00)
[2017-08-07] MEDS: NICOTINE 21 MG/24 HR PATCH T-DERMAL SCH (09:00)
--- NOTE | 2017-08-07 11:12 | HHI.PYPN ---
Subjective Remarks The patient was seen and examined this patient today for psychiatric reevaluation. Case was while he discussed with her counselor and nurse in charge. Patient is found sleeping, easily arousable. He is calm, cooperative, he reports feeling better today, improved mood, reports good appetite, good level of energy, good sleep at night. She denies suicidal and homicidal ideation, he denies visual and auditory hallucinations. The patient is fully oriented 3 at this moment. No confusion, no delirium, no attention deficit present at this moment. However, patient has been periodically agitated, disorganized, even aggressive, needed restraints an ETOs. Review of Systems Except as stated in HPI: all other systems reviewed are Neg Mental Status Examination Appearance: Appropriate Consciousness: Vigilant Orientation: Person, Place, Date/Time Motor Activity: Normal gait Speech: Unremarkable Language: Adequate Fund of Knowledge: Adequate Attention and Concentration: Adequate Memory: Unremarkable Mood: Appropriate, Irritable Affect: Blunt Thought Process & Associations: Intact, Linear Thought Content: Bizarre thinking, Preoccupations, Delusional Hallucination Type: None Delusion Type: Paranoid Suicidal Ideation: No Suicidal Plan: No Suicidal Intention: No Homicidal Ideation: No Homicidal Plan: No Homicidal Intention: No Insight: Fair Judgment: Impulsive Results Labs Date/Time Source Procedure Growth Status 08/01/17 20:15 Blood Peripheral Aerobic Blood Culture - Final NO GROWTH IN 5 DAYS Complete 08/01/17 20:15 Blood Peripheral Anaerobic Blood Culture - Final NO GROWTH IN 5 DAYS Complete Vitals/IOs Vital Signs Date Time Temp Pulse Resp B/P (MAP) Pulse Ox O2 Delivery O2 Flow Rate FiO2 08/07/17 05:48 97.2 70 20 121/60 (80) 96 Intake and Output 08/07/17 08/07/17 08/08/17 08:00 16:00 00:00 Intake Total 120 ml 600 ml Balance 120 ml 600 ml Assessment & Plan Problem List: (1) Unspecified psychosis ICD Codes: F29 - Unspecified psychosis not due to a substance or known physiological condition Assessment & Plan: Continue current psychotropic regimen. Monitor closely behavior and mood. Brief supportive psychotherapy and psychoeducation provided. Assessment & Plan Estimated LOS: days Justification for Cont. Inpt. Patient has an elevated risk to decompensate at a lower level of care. Rich Trujillo MD Aug 07, 2017 11:12
[2017-08-07 18:52] VITALS: BP 144/82; PULSE 78; RESP 18; TEMP 98; O2SAT 96
[2017-08-07] MEDS: REMOVE OLD NICOTINE PATCH T-DERMAL SCH (21:00)
--- NOTE | 2017-08-07 22:21 | HHI.PYPN ---
Subjective Remarks LATE ENTRY: 08/06/17 Patient seen for follow up; chart reviewed. Discussion with nursing staff reported that the patient had needed any further ETOs or restraints recently. Patient was found lying on hospital bed, calm and cooperative with interview. Patient stated that he was feeling "good", reported having slept well, mood having been "good" with no SI, HI, AVH or delusions. He continues to not recall the events that brought him to the hospital but states that he would like to go home. Review of Systems Except as stated in HPI: all other systems reviewed are Neg Mental Status Examination Appearance: Appropriate Consciousness: Vigilant Orientation: Person, Place, Date/Time Motor Activity: Normal gait Speech: Unremarkable Language: Adequate Fund of Knowledge: Adequate Attention and Concentration: Adequate Memory: Unremarkable Mood: Appropriate Affect: Blunt Thought Process & Associations: Intact, Linear Thought Content: Bizarre thinking, Preoccupations, Delusional Hallucination Type: None Delusion Type: Paranoid Suicidal Ideation: No Suicidal Plan: No Suicidal Intention: No Homicidal Ideation: No Homicidal Plan: No Homicidal Intention: No Insight: Fair Judgment: Impulsive Results Labs Date/Time Source Procedure Growth Status 08/01/17 20:15 Blood Peripheral Aerobic Blood Culture - Final NO GROWTH IN 5 DAYS Complete 08/01/17 20:15 Blood Peripheral Anaerobic Blood Culture - Final NO GROWTH IN 5 DAYS Complete Vitals/IOs Vital Signs Date Time Temp Pulse Resp B/P (MAP) Pulse Ox O2 Delivery O2 Flow Rate FiO2 08/07/17 18:52 98.0 78 18 144/82 (102) 96 Intake and Output 08/07/17 08/07/17 08/08/17 08:00 16:00 00:00 Intake Total 120 ml 1440 ml 240 ml Balance 120 ml 1440 ml 240 ml Assessment & Plan Problem List: (1) Unspecified psychosis ICD Codes: F29 - Unspecified psychosis not due to a substance or known physiological condition Assessment & Plan Patient continues to be confused regarding what brought him to the hospital. He also has poor insight into his recent behavior but has no longer had aggressive behavior or agitation. Continue current treatment. Discharge planning in progress. Justification for Cont. Inpt. At risk for further decompensation at lower level of care. Discharge Planning To be discharged back to residence once psychiatrically and medically stable. Dany Lucas MD Aug 07, 2017 22:21
[2017-08-08] MEDS: hydrOXYzine HCL 50 MG TAB PO PRN (04:13)
[2017-08-08] MEDS: ACETAMINOPHEN 325 MG TAB PO PRN (04:14)
[2017-08-08 05:20] VITALS: BP 107/53; PULSE 93; RESP 16; TEMP 97.9; O2SAT 94
[2017-08-08] MEDS: GABAPENTIN 100 MG CAP PO SCH (09:00)
[2017-08-08] MEDS: NICOTINE 21 MG/24 HR PATCH T-DERMAL SCH (09:00)
[2017-08-08] MEDS: amLODIPine BESYLATE 5 MG TAB PO SCH (09:00)
[2017-08-08] MEDS: MIDODRINE 5 MG TAB PO SCH (09:01)
[2017-08-08] MEDS: PINDOLOL 5 MG TAB PO SCH (09:02)
[2017-08-08] MEDS: levETIRAcetam 500 MG TAB PO SCH (09:02)
[2017-08-08] MEDS: risperiDONE 1 MG TAB PO SCH (09:02)
[2017-08-08] MEDS: DULoxetine HCl DR 60 MG CAP PO SCH (09:02)
[2017-08-08] MEDS ORDERED: CYMB60CA PO (12:26)
[2017-08-08] MEDS ORDERED: RISP1 PO (12:26)
[2017-08-08] MEDS ORDERED: GABA100C4 PO (12:26)
[2017-08-08] MEDS ORDERED: BACL10TA PO (12:26)
[2017-08-08] MEDS ORDERED: MIDO2.5T PO (12:26)
[2017-08-08] MEDS ORDERED: LEVE500 PO (12:26)
[2017-08-08] MEDS ORDERED: AMLO5TAB2 PO (12:26)
[2017-08-08] MEDS ORDERED: PIND5 PO (12:26)
--- NOTE | 2017-08-08 12:34 | HHI.DS ---
Psychiatry Discharge Summary Inpatient Psychiatric care?: Yes Advance Directive: No Reason Not Provided: Due to Patient Condition Mental Health AdvanceDirective: No Health Care Proxy: Yes Admission Admission Date Aug 01, 2017 at 23:26 Admission Diagnosis: (1) Unspecified psychosis ICD Code: F29 - Unspecified psychosis not due to a substance or known physiological condition Brief History The patient is a 57-year-old white man, domicile with his in [place], unemployed, supported by [facility], with psychiatric history of depression, psychotic episodes, 1 previous psychiatric hospitalization here at [facility] in the summer of 2016, he was under the care of Dr. Glover, documentation review, he has an established outpatient care with Dr. Florez in [place], he is on duloxetine 120 mg daily, no previous suicidal attempts, medical history of spinal cord injury, chronic back pain, hypertension, seizures, who was brought on the [facility] from [facility] due to psychotic behavior at home. Per ER documentation : He is a poor historian and cannot tell me exactly why he is here. He states that he is on chronic morphine and baclofen pump for his chronic back pain and RSD. He even tells me he takes by mouth morphine and baclofen as well but cannot tell me the dosage was very vague in answering my questions. He states that he gets his medications from [facility] in [place] on [facility]. He states that he denies any IV drug use. He states that he smokes about half pack of cigarette per day does not drink alcohol. He does go see a pain specialist refills on his baclofen and morphine pump was seen 3 weeks ago. He states started past 2 weeks he has felt generalized fatigue joint pains and muscle aches. He denies any significant fevers or chills. He has not had any upper respiratory symptoms of runny nose or coughing or sore throat. He denies any abdominal pain with diarrhea nor any nausea or vomiting. He has had decreased appetite. He states due to his chronic pain usually ambulates with a cane. When asked how he sustained abrasions on his left forehead, he tells me he does not know. Patient was seen today for psychiatric evaluation. Case was widely discussed with nurse in charge and also with her counselor Sara. Collateral information from patient's was obtained. On psychiatric evaluation today the patient is resistant, oppositional and very irritable. Patient says that he does not know the reason he is in the hospital. He says that his sent him here without no reason. The patient is fully oriented 3. He says that he has medical problems, including back pain and he needs his medications. The patient denies depressive symptoms, he says that he enjoys life, he denies suicidal and homicidal ideation, he denies visual and auditory hallucinations. Patient is logical, coherent and relevant. When I tried to confront him about the reason of his hospitalization and documented information in the [facility] acted patient says that he doesn't want to talk about it and it should call his . He denies the use of alcohol and illicit drugs. He denies abusing or overtaking his pain medications. Appetite are from his Rhoda Red at [phone] , was obtained. She says that yesterday she noted that her was taking extra time in the bathroom and she went to knot the door. She found the patient wandering, very disorganized, he acting very bizarre, and is stating that "I know is Marbin, I know is Marbin". She says that she tried to reorient the patient but he continued to make persistently religion statements would not answer any of her questions. Moments later he became agitated, no aggressive she clarifies, she called the ambulance and he became more agitated with them. She says that this is not the first time that the patient has a similar psychotic episode, in the past he was taken to the hospital for having a similar presentation but they found that he had an infection. She suspects that the patient probably could be missed using or abusing some of his medications, but she doesn't know the details of the medication that he is taking. 08/04/17 - Second opinion Patient is a 57-year-old man, , unemployed on SSI with a past psychiatric history of depression and psychosis, 1 previous psychiatric admission, no previous suicide attempt, with past medical history of spinal cord injury, chronic back pain hypertension and seizure disorder who was admitted to the inpatient psychiatry for psychosis. Discussion with nursing staff reported the patient earlier this morning I become aggressive" díaz- headed be activated due to his aggressive behavior with staff and required a ETO of olanzapine 5 mg IM 1. Patient was found sitting in hospital bed eating breakfast, cooperative but noted to be guarded and hypervigilant. Patient stated he is feeling "okay" continued reporting having back pain, reports having difficult to see last evening, reports his mood has been good denies feeling sad or depressed. Patient is no 3 but unable to recall reasons why he is in the hospital at this time. Patient denies any suicidal homicidal ideations, his denies any perceptual disturbances or delusions. Patient appeared very paranoid with promotion writer and noted to be very guarded. Tobacco Use In Past 30 Days: No Tobacco Past 30 Days Alcohol Use: 2-4 Times Per Month Hospital Course Patient was admitted in the psychiatric unit due to visual hallucinations, perceptual disturbances, paranoia, disorganized behavior and speech. Psychosocial and psychiatric assessment were performed. Appropriate safety measures were taken. Patient was started in medication for psychosis, Risperdal 1 mg twice a day, titrated to 2 mg twice a day, individual and group therapies. He also was consulted to medicine to address potential medical causes of AMS. The patient showed an appropriate positive response to psycho therapies and psychotropics. No significant side effects reported. Patient was usually calm, cooperative, with periodic agitation and behavioral dysregulation, but no aggressiveness. At the moment of discharge patient has achieved his baseline. No depression, nonpsychotic, no psychosis reported or observed. Results Blood Pressure 107 / 53 Vital Signs Date Time Temp Pulse Resp B/P (MAP) Pulse Ox O2 Delivery O2 Flow Rate FiO2 08/08/17 05:20 97.9 93 16 107/53 (71) 94 Laboratory Tests Test 08/06/17 07:30 Creatinine 1.39 MG/DL (0.60-1.30) Chloride Level 109 MEQ/L (98-107) Estimat Glomerular Filtration Rate 52 ML/MIN (>89) Laboratory Results Test 08/03/17 04:35 Cholesterol Level 193 MG/DL (120-200) HDL Cholesterol 52.3 MG/DL (40.0-60.0) Hemoglobin A1c 5.5 % (4.3-6.0) LDL Cholesterol 118 MG/DL (0-99) Triglycerides Level 113 MG/DL (42-150) Summary of Procedures None Imaging Last Impressions Head CT 08/01/17 0509 Signed Impressions: Service Date/Time: Tuesday, August 01, 2017 19:01 - CONCLUSION: Normal examination. 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 Taurus Ontiveros MD Pending results at discharge: No Medications # of Antipsychotic meds at D/C: 1 Appropriate >1 Antipsych meds?: 1 Approp Antipsych med options 1 - Minimum of three failed multiple trials of monotherapy. 2 - Documented plan to taper to monotherapy due to previous use of multiple meds OR cross-taper in progress at D/C. 3 - Documentation of augmentation of Clozapine. 4 - Justification other than those listed in allowable values 1-3, document here : Discharge Discharge Date: Aug 08, 2017 Discharge Diagnosis: (1) Unspecified psychosis ICD Code: F29 - Unspecified psychosis not due to a substance or known physiological condition Pt Condition on Discharge: Stable Discharge Disposition: Discharge Home Discharge Instructions Diet Instructions: Heart Healthy Diet Activities you can perform: Regular-No Restrictions Scheduled Appointment: Dr. Florez Appointment Date: Aug 07, 2017 Appointment Time: 01:45pm Discharge Time > 30 minutes Mental Status Examination Appearance: Appropriate Consciousness: Vigilant Orientation: Person, Place, Date/Time Motor Activity: Normal gait Speech: Unremarkable Language: Adequate Fund of Knowledge: Adequate Attention and Concentration: Adequate Memory: Unremarkable Mood: Appropriate Affect: Blunt Thought Process & Associations: Intact, Linear Thought Content: Bizarre thinking, Preoccupations, Delusional Hallucination Type: None Delusion Type: Paranoid Suicidal Ideation: No Suicidal Plan: No Suicidal Intention: No Homicidal Ideation: No Homicidal Plan: No Homicidal Intention: No Insight: Fair Judgment: Impulsive Discharge/Advance Care Plan Health Problems: (1) Unspecified psychosis Goals to promote your health * To prevent worsening of your condition and complications * To maintain your health at the optimal level Directions to meet your goals Take your medications as prescribed Follow your dietary instruction Follow activity as directed Keep your appointments as scheduled Take your immunizations and boosters as scheduled If your symptoms worsen call your PCP, if no PCP go to Urgent Care Center or Emergency Room For 12/02 questions related to your inpatient stay or results of tests pending at discharge, please contact Dr. Rich Trujillo at Smoking is Dangerous to Your Health. Avoid second hand smoking Rich Trujillo MD Aug 08, 2017 12:34
== END 2017-08-08 12:00 | disposition home or self-care (01) | DRG 885 ==
LOC: NEDAMB 17:24 → NEDA 23:26 → H4EA 08-02 01:45
PROVIDERS: ADMIT Psychiatry & Neurology Psychiatry; ATTEND Psychiatry & Neurology Psychiatry
DX: F29 Unspecified psychosis not due to a substance or known physiological condition (principal); N17.9 Acute kidney failure, unspecified; N18.3 Chronic kidney disease, stage 3 (moderate); G90.50 Complex regional pain syndrome I, unspecified; I12.9 Hypertensive chronic kidney disease with stage 1 through stage 4 chronic kidney disease, or unspecified chronic kidney disease; G89.29 Other chronic pain; D72.829 Elevated white blood cell count, unspecified; M54.9 Dorsalgia, unspecified; F17.210 Nicotine dependence, cigarettes, uncomplicated
CPT/HCPCS: 70450; 71045; 80048; 80053; 80061; 80307; 81001; 82550; 82552; 83036; 83605; 83735; 84443; 84484; 85025; 85610; 85730; 86140; 87040; 93005; 96365; J0133; J1200; J7030; P9612